=== PATIENT | female | born 1965 | race Caucasian/White ===

== ENCOUNTER 2023-02-11 16:26 | Observation (INO) | payer OTHER ==
[2023-02-11] MEDS ORDERED: DUONEB 0.5-3 MG/3 ml Neb IH ONE (17:18)
[2023-02-11] MEDS ORDERED: solu-MEDROL 125 MG, Sterile H2O 10 ml 2 ML IV ONE ×2 (17:18)
[2023-02-11] MEDS ORDERED: ROCEPHIN 2 Gm-D5w 50ML BAG** 2 G/50 ML IVPB IV STA (17:20)
[2023-02-11] MEDS ORDERED: Zithromax 500 MG/ 250 ML NaCl Premix 500 MG/250 ML IVPB IV STA (17:20)
[2023-02-11] MEDS ORDERED: Sterile H2O 10 ml IJ ONE (17:22)
[2023-02-11] MEDS ORDERED: ROCEPHIN 2 Gm-D5w 50ML BAG** 2 G/50 ML IVPB IV ONE (17:22)
[2023-02-11] MEDS ORDERED: solu-MEDROL ONE (17:22)
--- NOTE | 2023-02-11 17:22 | ERPHSYRPT ---
- History of Present Illness Time Seen by Provider: 02/11/23 17:22 Source: patient Exam Limitations: no limitations Patient Subjective Stated Complaint: Pt states "I have been coughing for the past week and [facility] because I couldn't take it anymore and they s aid I had low O2 sats and sent me here." Triage Nursing Assessment: Pt presented alert and oriented X 3, skin pwd. pt ambulates with an upright steady gait, able to speak in clear full sentences. tp has occasional productive cough. Physician History: 57-year-old female history of COPD CHF presents to our ED for a 1 week history of a cough. Cough is progressive. Patient went to [facility] care. Patient was observed to be hypoxic and sent to our ED for further evaluation and treatment. No associated chest pain. No trauma no fever. Symptoms are progressive. Symptoms are moderate in intensity. No specific worsening or improving factors. Patient voices no other complaints or concerns at this time. Portions of this note were created with voice recognition technology. There may be grammatical, spelling, punctuation or sound alike errors Timing/Duration: week(s) (1 week) Activities at Onset: activity Severity of Dyspnea-Max: moderate Severity of Dyspnea-Current: mild Possible Cause: occasional episodes Modifying Factors: Improves With: activity Associated Symptoms: denies symptoms Allergies/Adverse Reactions: No Known Drug Allergies Allergy (Verified 02/11/23 17:19) Home Medications: Allopurinol 300 mg [Zyloprim 300 mg] 300 mg PO DAILY 02/11/23 [History] Ferrous Sulfate 325 mg PO DAILY 02/11/23 [History] Furosemide 40 mg [Lasix 40 MG] 40 mg PO DAILY 02/11/23 [History] Oxybutynin Chloride [Oxybutynin Chloride ER] 10 mg PO DAILY 02/11/23 [History] Rivaroxaban [Xarelto] 20 mg PO DAILY 02/11/23 [History] Hx Tetanus, Diphtheria Vaccination/Date Given: No Hx Influenza Vaccination/Date Given: No Hx Pneumococcal Vaccination/Date Given: No Immunizations Up to Date: Yes Travel Risk - International Travel Have you traveled outside of the country in past 3 weeks: No - Coronavirus Screening Are you exhibiting any of the following symptoms?: Yes Symptoms: Cough: New Onset Close contact with a COVID-19 positive Pt in past 14-21 Days: No - Vaccine Status Have you recieved a Covid-19 vaccination: No - Review of Systems Constitutional: No Symptoms, No Fever, No Chills Eyes: No Symptoms Ears, Nose, & Throat: No Symptoms Respiratory: No Symptoms, No Cough, No Dyspnea Cardiac: No Symptoms, No Chest Pain, No Edema, No Syncope Abdominal/Gastrointestinal: No Symptoms, No Abdominal Pain, No Nausea, No Vomiting, No Diarrhea Genitourinary Symptoms: No Symptoms, No Dysuria Musculoskeletal: No Symptoms, No Back Pain, No Neck Pain Skin: No Symptoms, No Rash Neurological: No Symptoms, No Dizziness, No Focal Weakness, No Sensory Changes Psychological: No Symptoms Endocrine: No Symptoms Hematologic/Lymphatic: No Symptoms Immunological/Allergic: No Symptoms All Other Systems: Reviewed and Negative - Past Medical History Pertinent Past Medical History: Yes Neurological History: Stroke Cardiac History: Arrhythmia, Congestive Heart Failure, High Cholesterol, Hypertension Respiratory History: COPD, Pneumonia, Sleep Apnea Endocrine Medical History: No Pertinent History Musculoskeletal History: Osteoarthritis GI Medical History: GERD History: Renal Disease Female Reproductive Disorders: No Pertinent History Other Medical History: PMH: A-FIB, GOUT IN B GREAT TOES, STROKE (07/13/13), KIDNEY DISEASE. PSH: NONE - Past Surgical History Past Surgical History: No - Social History Smoking Status: Never smoker Exposure to second hand smoke: Yes Drug Use: none Patient Lives Alone: Yes - Nursing Vital Signs Nursing Vital Signs: Initial Vital Signs Temperature 97.2 F 02/11/23 17:12 Pulse Rate 85 02/11/23 17:12 Respiratory Rate 22 02/11/23 17:12 Blood Pressure 161/96 02/11/23 17:12 O2 Sat by Pulse Oximetry 86 L 02/11/23 17:12 Pain Scale Pain Intensity 0 - Physical Exam General Appearance: no apparent distress, alert Eye Exam: PERRL/EOMI, eyes nml inspection Ears, Nose, Throat Exam: hearing grossly normal, normal ENT inspection Neck Exam: normal inspection, supple Respiratory Exam: diminished breath sounds Cardiovascular/Chest Exam: normal heart sounds, regular rate/rhythm Abdominal/Gastrointestinal Exam: soft, No tenderness, No distention, No mass Extremity Exam: non-tender, normal range of motion, normal inspection, no calf tenderness, no pedal edema Neurologic Exam: alert, oriented x 3, cooperative, 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 as tested, sensation nml, No motor deficits Skin Exam: normal color, warm, No dry SpO2 Interpretation: normal SpO2: 86 O2 Delivery: Room Air - Course Nursing assessment & vital signs reviewed: Yes EKG Interpreted by Me: RATE (73), Sinus Rhythm, NORMAL AXIS, NORMAL INTERVALS - Radiology Exams Chest X-ray Interpretation: Reviewed by me (Patchy left upper lobe infiltrate left lower lobe opacity) Ordered Tests: Active Orders 24 hr Category Date Time Status Etl Bi Developer STAT Care 02/11/23 17:18 Active EKG-ER Only STAT Care 02/11/23 17:17 Active IV Insertion STAT Care 02/11/23 17:17 Active Pulse Oximetry (ED) STAT Care 02/11/23 17:17 Active CHEST 1 VIEW (PORTABLE) Stat Exams 02/11/23 19:15 Taken BLOOD CULTURE Stat Lab 02/11/23 19:25 Received CBC W DIFF Stat Lab 02/11/23 18:23 Completed CMP Stat Lab 02/11/23 18:23 Completed D-DIMER QUANTITATIVE Stat Lab 02/11/23 18:23 Completed NT PRO BNPII Stat Lab 02/11/23 18:23 Completed TROPONIN Q4H Lab 02/11/23 18:23 Completed TROPONIN Q4H Lab 02/11/23 21:30 Ordered TROPONIN Q4H Lab 02/12/23 01:30 Ordered Respiratory Therapy Assessment DAILY RT 02/11/23 17:20 Active Transfer Order Routine Transfer 02/11/23 Ordered Medication Summary Discontinued Medications Generic Name Dose Route Start Last Admin Trade Name Freq PRN Reason Stop Dose Admin Albuterol/Ipratropium 3 ml 02/11/23 17:18 02/11/23 17:19 Ipratropium/Albuterol Sulfate 3 Ml Ampul.Neb IH 02/11/23 17:19 3 ml STAT ONE Administration Methylprednisolone Sodium 0 mg 02/11/23 17:18 02/11/23 18:50 Succinate 125 mg/ Sterile IV 02/11/23 17:19 125 mg Water 2 ml STAT ONE Administration Ceftriaxone Sodium/Dextrose 2 g in 50 mls @ 100 mls/hr 02/11/23 17:20 02/11/23 18:50 Rocephin 2 Gm-D5w 50ml Bag IV 02/11/23 17:49 100 ml/hr STAT STA 100 mls/hr Administration Azithromycin 500 mg in 250 mls @ 250 mls/hr 02/11/23 17:20 02/11/23 19:24 Zithromax 500 Mg/ 250 Ml Nacl Premix IV 02/11/23 18:19 250 ml/hr STAT STA 250 mls/hr Administration Ceftriaxone Sodium/Dextrose Confirm 02/11/23 17:22 Rocephin 2 Gm-D5w 50ml Bag Administered 02/11/23 17:23 Dose 2 g in 50 mls @ ud IV .STK-MED ONE Azithromycin Confirm 02/11/23 19:18 Zithromax 500 Mg/ 250 Ml Nacl Premix Administered 02/11/23 19:19 Dose 500 mg in 250 mls @ ud IV .STK-MED ONE Methylprednisolone Sodium Succinate Confirm 02/11/23 17:22 Methylprednis Sod Succ 125 Mg/2 Ml Vial Administered 02/11/23 17:23 Dose 125 mg .ROUTE .STK-MED ONE Sterile Water Confirm 02/11/23 17:22 Water For Injection,Sterile 10 Ml Vial Administered 02/11/23 17:23 Dose 10 ml IJ .STK-MED ONE Lab/Rad Data: Laboratory Result Diagrams 02/11/23 18:23 02/11/23 18:23 Laboratory Results 02/11/23 02/11/23 02/11/23 Range/Units 18:23 18:23 18:23 WBC (4.0-10.5) x10^3/uL RBC (4.1-5.4) x10^6/uL Hgb (12.0-16.0) g/dL Hct (35-47) % MCV (78-100) fL MCH (26-32) pg MCHC (32-36) g/dL RDW (11.5-14.0) % Plt Count (150-450) x10^3/uL MPV (7.5-11.0) fL Gran % (36.0-66.0) % Immature Gran % (Auto) (0.00-0.4) % Nucleat RBC Rel Count (0.00-0.1) % Eos # (Auto) (0-0.5) x10^3/uL Immature Gran # (Auto) (0.00-0.03) x10^3u/L Absolute Lymphs (auto) (1.0-4.6) x10^3/uL Absolute Monos (auto) (0.0-1.3) x10^3/uL Absolute Nucleated RBC (0.00-0.01) x10^3u/L Lymphocytes % (24.0-44.0) % Monocytes % (0.0-12.0) % Eosinophils % (0.00-5.0) % Basophils % (0.0-0.4) % Absolute Granulocytes (1.4-6.9) x10^3/uL Basophils # (0-0.4) x10^3/uL D-Dimer 0.64 H* (0.0-0.50) mg/L Sodium 135 L (137-145) mmol/L Potassium 4.6 (3.5-5.1) mmol/L Chloride 98 (98-107) mmol/L Carbon Dioxide 30 (22-30) mmol/L Anion Gap 12.5 (5-15) MEQ/L BUN 27 H (7-17) mg/dL Creatinine 1.56 H (0.52-1.04) mg/dL Estimated GFR 38.1 ML/MIN Glucose 115 H (74-106) mg/dL Calcium 9.0 (8.4-10.2) mg/dL Total Bilirubin 1.00 (0.2-1.3) mg/dL AST 19 (14-36) U/L ALT 11 (0-35) U/L Alkaline Phosphatase 106 (38-126) U/L Troponin I < 0.012 (0.000-0.034) ng/mL NT-Pro-B Natriuret Pep 1330 (<300) pg/mL Serum Total Protein 7.4 (6.3-8.2) g/dL Albumin 3.4 L (3.5-5.0) g/dL Slides for Path Review 02/11/23 Range/Units 18:23 WBC 17.3 H (4.0-10.5) x10^3/uL RBC 3.58 L (4.1-5.4) x10^6/uL Hgb 10.0 L (12.0-16.0) g/dL Hct 35.3 (35-47) % MCV 98.6 (78-100) fL MCH 27.9 (26-32) pg MCHC 28.3 L (32-36) g/dL RDW 16.2 H (11.5-14.0) % Plt Count 397 (150-450) x10^3/uL MPV 9.8 (7.5-11.0) fL Gran % 91.1 H (36.0-66.0) % Immature Gran % (Auto) 0.7 H (0.00-0.4) % Nucleat RBC Rel Count 0.0 (0.00-0.1) % Eos # (Auto) 0.01 (0-0.5) x10^3/uL Immature Gran # (Auto) 0.12 H (0.00-0.03) x10^3u/L Absolute Lymphs (auto) 0.84 L (1.0-4.6) x10^3/uL Absolute Monos (auto) 0.53 (0.0-1.3) x10^3/uL Absolute Nucleated RBC 0.00 (0.00-0.01) x10^3u/L Lymphocytes % 4.8 L (24.0-44.0) % Monocytes % 3.1 (0.0-12.0) % Eosinophils % 0.1 (0.00-5.0) % Basophils % 0.2 (0.0-0.4) % Absolute Granulocytes 15.78 H (1.4-6.9) x10^3/uL Basophils # 0.04 (0-0.4) x10^3/uL D-Dimer (0.0-0.50) mg/L Sodium (137-145) mmol/L Potassium (3.5-5.1) mmol/L Chloride (98-107) mmol/L Carbon Dioxide (22-30) mmol/L Anion Gap (5-15) MEQ/L BUN (7-17) mg/dL Creatinine (0.52-1.04) mg/dL Estimated GFR ML/MIN Glucose (74-106) mg/dL Calcium (8.4-10.2) mg/dL Total Bilirubin (0.2-1.3) mg/dL AST (14-36) U/L ALT (0-35) U/L Alkaline Phosphatase (38-126) U/L Troponin I (0.000-0.034) ng/mL NT-Pro-B Natriuret Pep (<300) pg/mL Serum Total Protein (6.3-8.2) g/dL Albumin (3.5-5.0) g/dL Slides for Path Review YES - Progress Progress: improved Air Movement: good Progress Note: Patient on Xarelto. D-dimer positive. Will hold anticoagulation at this time. Patient to have inpatient VQ scan. 02/11/23 19:[address] Goodwin at 7:20 PM who accepts admission to observation. 02/11/23 19:21 Patient is a 57-year-old female presents to our ED for evaluation of shortness of breath. Physical exam reveals decreased breath sounds. Patient was hypoxic. D-dimer positive however patient on Xarelto. Due to compromised renal f unction patient unable to have a CTA chest. VQ scan will be done in-house. Laboratory workup otherwise negative. Patient received antibiotics Solu-Medrol, breathing treatment. Initial troponin negative. Management discussed with Dr. Goodwin who accepts admission to observation. Plan of care discussed with patient. She agrees to admission at [facility] for further evaluation and treatment. Portions of this note were created with voice recognition technology. There may be grammatical, spelling, punctuation or sound alike errors Complexity problem addressed is high, severe exacerbation of chronic condition with threat to bodily function. No critical care time Complex of data reviewed and analyzed is extensive. Test ordered test reviewed. Results analyzed and correlated clinically history and physical exam. Management discussed with hospitalist who accepts admission to observation. Risk of complication and or risk of morbidity/mortality of patient management is high. Patient requires hospitalization for further evaluation and treatment. Vital stable. Time spent to admit patient approximately 20 minutes. Plan of care established for shared decision making. No social determinants of health present impede follow-up. Portions of this note were created with voice recognition technology. There may be grammatical, spelling, punctuation or sound alike errors 02/11/23 19:28 Chest x-ray reveals a left upper lobe patchy infiltrate left lower lobe opacity 02/11/23 20:57 Per report patient tested negative for COVID RSV influenza at [facility] just prior to arrival to our ED 02/11/23 20:58 Blood Culture(s) Obtained: Yes Antibiotics given: Yes Counseled pt/family regarding: lab results, diagnosis, rad results - Departure Departure Disposition: Observation Clinical Impression: Leukocytosis, COPD exacerbation, Hypoxia, Chronic renal insufficiency Condition: Stable Critical Care Time: No Referrals: MELBA WILHELM MD [Primary Care Provider] - Follow up/PCP as directed Instructions: Chronic Obstructive Pulmonary Disease
[2023-02-11 18:35] LABS: Absolute Neutrophil Ct (ANC) 15.78 x10^3/uL (1.4-6.9); BASOPHIL % 0.2 % (0.0-0.4); Basophil (Absolute #) 0.04 x10^3/uL (0-0.4); Eosinophil % 0.1 % (0.00-5.0); Eosinophil (Absolute #) 0.01 x10^3/uL (0-0.5); Hematocrit 35.3 % (35-47); IMMATURE GRAN # 0.12 x10^3u/L (0.00-0.03); IMMATURE GRAN % 0.7 % (0.00-0.4); Lymphocyte (Absolute #) 0.84 x10^3/uL (1.0-4.6); Lymphocytes % 4.8 % (24.0-44.0); Mean Cell Volume 98.6 fL (78-100); Mean Corpuscular Hemoglobin 27.9 pg (26-32); Mean Corpuscular Hgb Concent. 28.3 g/dL (32-36); Mean Platelet Volume 9.8 fL (7.5-11.0); Monocyte (Absolute #) 0.53 x10^3/uL (0.0-1.3); Monocytes % 3.1 % (0.0-12.0); Neutrophil % 91.1 % (36.0-66.0); Platelet Count 397 x10^3/uL (150-450); Red Blood Count 3.58 x10^6/uL (4.1-5.4); Red Cell Distribution Width 16.2 % (11.5-14.0); White Blood Count 17.3 x10^3/uL (4.0-10.5)
[2023-02-11 18:59] LABS: ALBUMIN 3.4 g/dL (3.5-5.0); ANION GAP 12.5 MEQ/L (5-15); Creatinine 1 1.56 mg/dL (0.52-1.04); EST GLOMERULAR FILTRATION RATE 38.1 ML/MIN; Potassium 4.6 mmol/L (3.5-5.1); Total Protein 7.4 g/dL (6.3-8.2)
[2023-02-11] MEDS ORDERED: Zithromax 500 MG/ 250 ML NaCl Premix 500 MG/250 ML IVPB IV ONE (19:18)
[2023-02-11 19:32] LABS: Slide Review 1 YES
--- NOTE | 2023-02-11 23:40 | PCM.HP ---
History of Present Illness - Chief Complaint Chief Complaint: COPD exacerbation, hypoxia Date: 02/11/23 History of Present Illness: Ms. Rader is a 57 year old female with a past medical history significant for hypertension, hyperlipidemia, COPD and chronic kidney disease stage IIIb with a baseline GFR in the 30-40 mL/min range who presents to the hospital with a one week history of worsening shortness of breath associated with a somewhat productive cough. She had tried OTC medicines, then visited an urgent care clinic which provided her with one breathing treatment, but her symptoms did not improve. She was seen in the ER, treated with solumedrol, nebs and one dose of antibiotics. Her d-dimer was elevated but she was unable to get CTA due to an elevated creatinine of 1.56. She is currently resting in her room, awake/alert. She denies any chest pain or shortness of breath currently. No nausea, vomiting or diarrhea. No dysuria, hematuria, or urinary frequency. - Review of Systems Constitutional: No Symptoms Eyes: No Symptoms Ears, Nose, & Throat: No Symptoms Respiratory: Cough, Short Of Breath Cardiac: No Chest Pain, No Edema Abdominal/Gastrointestinal: No Abdominal Pain, No Nausea, No Vomiting Genitourinary Symptoms: No Symptoms Musculoskeletal: No Symptoms Neurological: No Symptoms Psychological: No Symptoms Endocrine: No Symptoms Hematologic/Lymphatic: No Symptoms Medications & Allergies Home Medications: Home Medication List Allopurinol 300 mg [Zyloprim 300 mg] 300 mg PO QHS 02/11/23 [History Confirmed 02/11/23] Carvedilol [Coreg ] 6.25 mg PO DAILY 02/11/23 [History Confirmed 02/11/23] Cyanocobalamin (Vitamin B-12) [Vitamin B-12] 500 mcg PO DAILY 02/11/23 [History Confirmed 02/11/23] Ferrous Sulfate 325 mg PO DAILY 02/11/23 [History Confirmed 02/11/23] Furosemide 40 mg [Lasix 40 MG] 40 mg PO DAILY 02/11/23 [History Confirmed 02/11/23] Oxybutynin Chloride [Oxybutynin Chloride ER] 10 mg PO DAILY 02/11/23 [History Confirmed 02/11/23] Rivaroxaban [Xarelto] 20 mg PO QHS 02/11/23 [History Confirmed 02/11/23] Allergies/Adverse Reactions: Allergies Allergy/AdvReac Type Severity Reaction Status Date / Time No Known Drug Allergies Allergy Verified 02/11/23 22:15 - Past Medical History Past Medical History: Yes Neurological History: Stroke ENT History: No Pertinent History Cardiac History: Arrhythmia, Congestive Heart Failure, High Cholesterol, Hypertension Respiratory History: Pneumonia, Sleep Apnea Endocrine Medical History: No Pertinent History Musculoskelatal History: Osteoarthritis GI Medical History: GERD History: Renal Disease Pyscho-Social History: No Pertinent History Reproductive Disorders: No Pertinent History Comment: afib, gout - Female History Are you now?: No - Past Surgical History Past Surgical History: No - Social History Smoking Status: Never smoker Exposure to second hand smoke: No Alcohol: None Drug Use: none - Physical Exam Vital Signs: Vital Signs - 24 hr Temp Pulse Resp BP BP Pulse Ox 02/11/23 22:58 94 L 02/11/23 22:24 98 F 77 20 124/66 94 L 02/11/23 21:00 75 25 H 129/67 94 L 02/11/23 20:59 86 L 02/11/23 20:45 76 30 H 111/74 95 02/11/23 20:30 79 22 127/72 94 L 02/11/23 20:15 78 28 H 131/74 94 L 02/11/23 20:00 81 37 H 118/72 93 L 02/11/23 19:50 83 17 94 L 02/11/23 19:46 87 19 95 02/11/23 19:30 84 20 152/70 93 L 02/11/23 19:20 84 25 H 93 L 02/11/23 19:10 84 28 H 127/72 93 L 02/11/23 18:20 94 L 02/11/23 17:31 84 24 157/108 93 L 02/11/23 17:20 100 H 24 94 L 02/11/23 17:12 97.2 F 85 24 161/96 86 L General Appearance: no apparent distress Neurologic Exam: alert, oriented x 3 Ears, Nose, Throat Exam: pharynx normal Neck Exam: supple Respiratory Exam: diminished breath sounds, wheezing Cardiovascular Exam: regular rate/rhythm Gastrointestinal/Abdomen Exam: soft Extremity Exam: No pedal edema Skin Exam: normal color Results - Labs Lab/Micro Results: Lab Results-Last 24 Hours 02/11/23 02/11/23 02/11/23 Range/Units 18:23 18:23 18:23 WBC 17.3 H (4.0-10.5) x10^3/uL RBC 3.58 L (4.1-5.4) x10^6/uL Hgb 10.0 L (12.0-16.0) g/dL Hct 35.3 (35-47) % MCV 98.6 (78-100) fL MCH 27.9 (26-32) pg MCHC 28.3 L (32-36) g/dL RDW 16.2 H (11.5-14.0) % Plt Count 397 (150-450) x10^3/uL MPV 9.8 (7.5-11.0) fL Gran % 91.1 H (36.0-66.0) % Immature Gran % (Auto) 0.7 H (0.00-0.4) % Nucleat RBC Rel Count 0.0 (0.00-0.1) % Eos # (Auto) 0.01 (0-0.5) x10^3/uL Immature Gran # (Auto) 0.12 H (0.00-0.03) x10^3u/L Absolute Lymphs (auto) 0.84 L (1.0-4.6) x10^3/uL Absolute Monos (auto) 0.53 (0.0-1.3) x10^3/uL Absolute Nucleated RBC 0.00 (0.00-0.01) x10^3u/L Lymphocytes % 4.8 L (24.0-44.0) % Monocytes % 3.1 (0.0-12.0) % Eosinophils % 0.1 (0.00-5.0) % Basophils % 0.2 (0.0-0.4) % Absolute Granulocytes 15.78 H (1.4-6.9) x10^3/uL Basophils # 0.04 (0-0.4) x10^3/uL D-Dimer 0.64 H* (0.0-0.50) mg/L Sodium 135 L (137-145) mmol/L Potassium 4.6 (3.5-5.1) mmol/L Chloride 98 (98-107) mmol/L Carbon Dioxide 30 (22-30) mmol/L Anion Gap 12.5 (5-15) MEQ/L BUN 27 H (7-17) mg/dL Creatinine 1.56 H (0.52-1.04) mg/dL Estimated GFR 38.1 ML/MIN Glucose 115 H (74-106) mg/dL Calcium 9.0 (8.4-10.2) mg/dL Total Bilirubin 1.00 (0.2-1.3) mg/dL AST 19 (14-36) U/L ALT 11 (0-35) U/L Alkaline Phosphatase 106 (38-126) U/L Troponin I (0.000-0.034) ng/mL NT-Pro-B Natriuret Pep 1330 (<300) pg/mL Serum Total Protein 7.4 (6.3-8.2) g/dL Albumin 3.4 L (3.5-5.0) g/dL Slides for Path Review YES 02/11/23 02/11/23 Range/Units 18:23 21:00 WBC (4.0-10.5) x10^3/uL RBC (4.1-5.4) x10^6/uL Hgb (12.0-16.0) g/dL Hct (35-47) % MCV (78-100) fL MCH (26-32) pg MCHC (32-36) g/dL RDW (11.5-14.0) % Plt Count (150-450) x10^3/uL MPV (7.5-11.0) fL Gran % (36.0-66.0) % Immature Gran % (Auto) (0.00-0.4) % Nucleat RBC Rel Count (0.00-0.1) % Eos # (Auto) (0-0.5) x10^3/uL Immature Gran # (Auto) (0.00-0.03) x10^3u/L Absolute Lymphs (auto) (1.0-4.6) x10^3/uL Absolute Monos (auto) (0.0-1.3) x10^3/uL Absolute Nucleated RBC (0.00-0.01) x10^3u/L Lymphocytes % (24.0-44.0) % Monocytes % (0.0-12.0) % Eosinophils % (0.00-5.0) % Basophils % (0.0-0.4) % Absolute Granulocytes (1.4-6.9) x10^3/uL Basophils # (0-0.4) x10^3/uL D-Dimer (0.0-0.50) mg/L Sodium (137-145) mmol/L Potassium (3.5-5.1) mmol/L Chloride (98-107) mmol/L Carbon Dioxide (22-30) mmol/L Anion Gap (5-15) MEQ/L BUN (7-17) mg/dL Creatinine (0.52-1.04) mg/dL Estimated GFR ML/MIN Glucose (74-106) mg/dL Calcium (8.4-10.2) mg/dL Total Bilirubin (0.2-1.3) mg/dL AST (14-36) U/L ALT (0-35) U/L Alkaline Phosphatase (38-126) U/L Troponin I < 0.012 < 0.012 (0.000-0.034) ng/mL NT-Pro-B Natriuret Pep (<300) pg/mL Serum Total Protein (6.3-8.2) g/dL Albumin (3.5-5.0) g/dL Slides for Path Review - Radiology Impressions Radiology Exams & Impressions: Radiology Procedures Category Date Time Status CHEST 1 VIEW (PORTABLE) Stat Exams 02/11/23 19:15 Taken PULMONARY PERF VENTILATION [NUCMED] Routine Exams 02/12/23 08:00 Ordered - Other Procedures and Tests Respiratory Therapy 02/11/23 17:20 Respiratory Therapy Assessment DAILY 02/11/23 23:00 RT Screen per Nursing Assess ONCE Assessment/Plan (1) COPD exacerbation Current Visit: Yes Status: Acute Assessment & Plan: COPD exacerbation likely from underlying pneumonia - does have positive D-dimer but at moderate risk for contrast nephropathy with CTA chest 1. Admit to hospital 2. Duonebs q6 3. Solumedrol 40mg IV q12 4. Empiric antibiotics with rocephin/zithromax 5. Supplemental oxygen 6. Will order V/Q scan given elevated d-dimer to rule out PE Code(s): J44.1 - CHRONIC OBSTRUCTIVE PULMONARY DISEASE W (ACUTE) EXACERBATION (2) Chronic renal insufficiency Current Visit: Yes Status: Acute Assessment & Plan: Creatinine at 1.6 with baseline ~ 1.4 likely from underlying cardiorenal syndrome 1. Encourage PO intake 2. Diuretics prn - will hold for now 3. Defer IV contrast 4. Avoid NSAIDs 5. Follow I/Os 6. Watch electrolytes, creatinine closely Code(s): N18.9 - CHRONIC KIDNEY DISEASE, UNSPECIFIED Telemedicine Encounter - Telemedicine Encounter Telemedicine Encounter: The entirety of this encounter was performed via Telemedicine"
[2023-02-12] MEDS ORDERED: XARELTO 10 MG TABLET PO SCH ×2 (00:02→10:00)
[2023-02-12] MEDS: ZYLOPRIM 300 MG PO SCH ×2 (00:05→21:06)
[2023-02-12] MEDS ORDERED: DUONEB 0.5-3 MG/3 ml Neb IH PRN (01:47)
[2023-02-12] MEDS ORDERED: DUONEB 0.5-3 MG/3 ml Neb IH SCH (03:00)
[2023-02-12 05:39] LABS: Hematocrit 33.6 % (35-47); Hemoglobin 9.3 g/dL (12.0-16.0); Mean Cell Volume 99.7 fL (78-100); Mean Corpuscular Hemoglobin 27.6 pg (26-32); Mean Corpuscular Hgb Concent. 27.7 g/dL (32-36); Platelet Count 365 x10^3/uL (150-450); Red Blood Count 3.37 x10^6/uL (4.1-5.4); White Blood Count 12.9 x10^3/uL (4.0-10.5)
[2023-02-12] MEDS: DUONEB 0.5-3 MG/3 ml Neb IH SCH ×4 (07:10→19:16)
[2023-02-12 07:29] LABS: Calcium 8.9 mg/dL (8.4-10.2); Creatinine 1 1.67 mg/dL (0.52-1.04); EST GLOMERULAR FILTRATION RATE 35.1 ML/MIN; Potassium 3.9 mmol/L (3.5-5.1)
[2023-02-12 07:30] LABS: BILIRUBIN,TOTAL 0.5 mg/dL (0.2-1.3); Total Protein 6.7 g/dL (6.3-8.2)
[2023-02-12 07:31] LABS: ANION GAP 8.9 MEQ/L (5-15)
[2023-02-12 07:37] LABS: Slide Review YES
--- NOTE | 2023-02-12 08:46 | XRAY ---
Indication: Short of breath. Comparison: None Portable chest demonstrates diffuse left lung and lesser degree right base patchy airspace disease. Rule out Covid 19 pneumonia. Heart enlarged obscuring left lung base. Bony thorax intact with osteopenia and mild degenerative changes.
[2023-02-12] MEDS ORDERED: ZYLOPRIM 300 MG PO SCH (10:00)
[2023-02-12] MEDS: Coreg PO SCH ×2 (10:18→21:05)
[2023-02-12] MEDS: solu-MEDROL 40 MG, Sterile H2O 10 ml 1 ML IV SCH ×4 (10:18→21:06)
[2023-02-12] MEDS: ROCEPHIN 1 Gm-D5w 50 ml Bag** 1 G/50 ML IVPB IV SCH (10:19)
[2023-02-12] MEDS: MUCINEX DM 600/30MG PO SCH ×3 (10:28→21:05)
[2023-02-12] MEDS: Zithromax 500 MG/ 250 ML NaCl Premix 500 MG/250 ML IVPB IV SCH (10:52)
[2023-02-12 12:12] LABS: INFLUENZA A NEGATIVE (NEGATIVE); INFLUENZA B NEGATIVE (NEGATIVE); RESPIRATORY SYNCTIAL VIRUS NEGATIVE (NEGATIVE); SARS-CoV-2 Xpert Express NEGATIVE (NEGATIVE)
--- NOTE | 2023-02-12 13:43 | PCM.NOTE ---
Date and Time: 02/12/23 0133 Subjective Assessment: Ms. Rader is a 57 year old female with a past medical history significant for hypertension, hyperlipidemia, COPD and chronic kidney disease stage IIIb with a baseline GFR in the 30-40 mL/min range who presents to the hospital with a one week history of worsening shortness of breath associated with a somewhat productive cough. She had tried OTC medicines, then visited an urgent care clinic which provided her with one breathing treatment, but her symptoms did not improve. She was seen in the ER, treated with solumedrol, nebs and one dose of antibiotics. Her d-dimer was elevated but she was unable to get CTA due to an elevated creatinine of 1.56. She was admitted and started on antibiotics, solume drol, and duonebs. VQ scan is scheduled for tomorrow. Pt has some pain of LLE and since d-dimer elevated will order venous duplex of BLLE. Covid/ Flu/ RSV negative. She admits to coughing up bloody/thick/yellow sputum prior to admission. Since admitted she has seen no blood. She is on 3 lNC and baseline is RA. She denies CP, Abd pain, N.V/D Pulm: Dr. Kowalski Nephro: Blayne PCP: Dr. Mcgill <RAHEEM BRYAN - Last Filed: 02/12/23 13:33> Date and Time: 02/12/232008 <DENISE CONNORS - Last Filed: 02/12/23 20:10> - Review of Systems Constitutional: No Fever, No Chills Eyes: No Symptoms Ears, Nose, & Throat: No Symptoms Respiratory: Cough, Orthopnea, No Short Of Breath Cardiac: No Chest Pain, No Edema, No Syncope Abdominal/Gastrointestinal: No Abdominal Pain, No Nausea, No Vomiting, No Diarrhea Genitourinary Symptoms: No Dysuria Musculoskeletal: No Back Pain, No Neck Pain Skin: No Rash Neurological: No Dizziness, No Focal Weakness, No Sensory Changes Psychological: No Symptoms Endocrine: No Symptoms Hematologic/Lymphatic: No Symptoms Immunological/Allergic: No Symptoms <RAHEEM BRYAN - Last Filed: 02/12/23 13:33> Objective Exam General Appearance: no apparent distress, alert, obese Neurologic Exam: alert, oriented x 3, cooperative, normal mood/affect, nml cere bellar function, sensation nml, No motor deficits Skin Exam: normal color, warm, dry Eye Exam: PERRL, EOMI, eyes nml inspection Ears, Nose, Throat Exam: normal ENT inspection, pharynx normal, moist mucous membranes Neck Exam: normal inspection, non-tender, supple, full range of motion Respiratory Exam: normal breath sounds, lungs clear, diminished breath sounds, No respiratory distress Cardiovascular Exam: regular rate/rhythm, normal heart sounds, edema (LLE, warm, and painful to touch) Gastrointestinal/Abdomen Exam: soft, No tenderness, No mass Extremity Exam: normal inspection, normal range of motion Back Exam: normal inspection, normal range of motion, No CVA tenderness, No vertebral tenderness Pelvic Exam: deferred Rectal Exam: deferred <RAHEEM BRYAN - Last Filed: 02/12/23 13:33> OBJECTIVE DATA Vital Signs: Vital Signs - 24 hr Temp Pulse Resp BP BP Pulse Ox 02/12/23 11:55 96.9 F 69 18 141/73 94 L 02/12/23 10:49 65 20 95 02/12/23 07:19 96.1 F 67 18 108/51 96 02/12/23 07:13 72 18 94 L 02/12/23 04:00 97.0 F 69 18 120/69 94 L 02/11/23 23:27 73 20 95 02/11/23 22:58 94 L 02/11/23 22:24 98 F 77 20 124/66 94 L 02/11/23 21:00 75 25 H 129/67 94 L 02/11/23 20:59 86 L 02/11/23 20:45 76 30 H 111/74 95 02/11/23 20:30 79 22 127/72 94 L 02/11/23 20:15 78 28 H 131/74 94 L 02/11/23 20:00 81 37 H 118/72 93 L 02/11/23 19:50 83 17 94 L 02/11/23 19:46 87 19 95 02/11/23 19:30 84 20 152/70 93 L 02/11/23 19:20 84 25 H 93 L 02/11/23 19:10 84 28 H 127/72 93 L 02/11/23 18:20 94 L 02/11/23 17:31 84 24 157/108 93 L 02/11/23 17:20 100 H 24 94 L 02/11/23 17:12 97.2 F 85 24 161/96 86 L Pain Assessment - Last Documented Pain Intensity 0 Intake and Output: Intake & Output 02/10/23 02/11/23 02/12/23 02/13/23 11:59 11:59 11:59 11:59 Intake Total 400 Output Total 900 Balance 400 -900 Weight 150.5 kg Lab Results: Lab Results-Last 24 Hours 02/11/23 02/11/23 02/11/23 Range/Units 18:23 18:23 18:23 WBC 17.3 H (4.0-10.5) x10^3/uL RBC 3.58 L (4.1-5.4) x10^6/uL Hgb 10.0 L (12.0-16.0) g/dL Hct 35.3 (35-47) % MCV 98.6 (78-100) fL MCH 27.9 (26-32) pg MCHC 28.3 L (32-36) g/dL RDW 16.2 H (11.5-14.0) % Plt Count 397 (150-450) x10^3/uL MPV 9.8 (7.5-11.0) fL Gran % 91.1 H (36.0-66.0) % Immature Gran % (Auto) 0.7 H (0.00-0.4) % Nucleat RBC Rel Count 0.0 (0.00-0.1) % Eos # (Auto) 0.01 (0-0.5) x10^3/uL Immature Gran # (Auto) 0.12 H (0.00-0.03) x10^3u/L Absolute Lymphs (auto) 0.84 L (1.0-4.6) x10^3/uL Absolute Monos (auto) 0.53 (0.0-1.3) x10^3/uL Absolute Nucleated RBC 0.00 (0.00-0.01) x10^3u/L Lymphocytes % 4.8 L (24.0-44.0) % Monocytes % 3.1 (0.0-12.0) % Eosinophils % 0.1 (0.00-5.0) % Basophils % 0.2 (0.0-0.4) % Absolute Granulocytes 15.78 H (1.4-6.9) x10^3/uL Basophils # 0.04 (0-0.4) x10^3/uL D-Dimer 0.64 H* (0.0-0.50) mg/L Sodium 135 L (137-145) mmol/L Potassium 4.6 (3.5-5.1) mmol/L Chloride 98 (98-107) mmol/L Carbon Dioxide 30 (22-30) mmol/L Anion Gap 12.5 (5-15) MEQ/L BUN 27 H (7-17) mg/dL Creatinine 1.56 H (0.52-1.04) mg/dL Estimated GFR 38.1 ML/MIN Glucose 115 H (74-106) mg/dL Calcium 9.0 (8.4-10.2) mg/dL Total Bilirubin 1.00 (0.2-1.3) mg/dL AST 19 (14-36) U/L ALT 11 (0-35) U/L Alkaline Phosphatase 106 (38-126) U/L Troponin I (0.000-0.034) ng/mL NT-Pro-B Natriuret Pep 1330 (<300) pg/mL Serum Total Protein 7.4 (6.3-8.2) g/dL Albumin 3.4 L (3.5-5.0) g/dL Influenza Type A Ag (NEGATIVE) Influenza Type B Ag (NEGATIVE) RSV (PCR) (NEGATIVE) SARS-CoV-2 (PCR) (NEGATIVE) Slides for Path Review YES 02/11/23 02/11/23 02/12/23 Range/Units 18:23 21:00 04:39 WBC (4.0-10.5) x10^3/uL RBC (4.1-5.4) x10^6/uL Hgb (12.0-16.0) g/dL Hct (35-47) % MCV (78-100) fL MCH (26-32) pg MCHC (32-36) g/dL RDW (11.5-14.0) % Plt Count (150-450) x10^3/uL MPV (7.5-11.0) fL Gran % (36.0-66.0) % Immature Gran % (Auto) (0.00-0.4) % Nucleat RBC Rel Count (0.00-0.1) % Eos # (Auto) (0-0.5) x10^3/uL Immature Gran # (Auto) (0.00-0.03) x10^3u/L Absolute Lymphs (auto) (1.0-4.6) x10^3/uL Absolute Monos (auto) (0.0-1.3) x10^3/uL Absolute Nucleated RBC (0.00-0.01) x10^3u/L Lymphocytes % (24.0-44.0) % Monocytes % (0.0-12.0) % Eosinophils % (0.00-5.0) % Basophils % (0.0-0.4) % Absolute Granulocytes (1.4-6.9) x10^3/uL Basophils # (0-0.4) x10^3/uL D-Dimer (0.0-0.50) mg/L Sodium (137-145) mmol/L Potassium (3.5-5.1) mmol/L Chloride (98-107) mmol/L Carbon Dioxide (22-30) mmol/L Anion Gap (5-15) MEQ/L BUN (7-17) mg/dL Creatinine (0.52-1.04) mg/dL Estimated GFR ML/MIN Glucose (74-106) mg/dL Calcium (8.4-10.2) mg/dL Total Bilirubin (0.2-1.3) mg/dL AST (14-36) U/L ALT (0-35) U/L Alkaline Phosphatase (38-126) U/L Troponin I < 0.012 < 0.012 < 0.012 (0.000-0.034) ng/mL NT-Pro-B Natriuret Pep (<300) pg/mL Serum Total Protein (6.3-8.2) g/dL Albumin (3.5-5.0) g/dL Influenza Type A Ag (NEGATIVE) Influenza Type B Ag (NEGATIVE) RSV (PCR) (NEGATIVE) SARS-CoV-2 (PCR) (NEGATIVE) Slides for Path Review 02/12/23 02/12/23 02/12/23 Range/Units 04:39 04:39 Unknown WBC 12.9 H (4.0-10.5) x10^3/uL RBC 3.37 L (4.1-5.4) x10^6/uL Hgb 9.3 L (12.0-16.0) g/dL Hct 33.6 L (35-47) % MCV 99.7 (78-100) fL MCH 27.6 (26-32) pg MCHC 27.7 L (32-36) g/dL RDW 16.0 H (11.5-14.0) % Plt Count 365 (150-450) x10^3/uL MPV 10.0 (7.5-11.0) fL Gran % (36.0-66.0) % Immature Gran % (Auto) (0.00-0.4) % Nucleat RBC Rel Count (0.00-0.1) % Eos # (Auto) (0-0.5) x10^3/uL Immature Gran # (Auto) (0.00-0.03) x10^3u/L Absolute Lymphs (auto) (1.0-4.6) x10^3/uL Absolute Monos (auto) (0.0-1.3) x10^3/uL Absolute Nucleated RBC (0.00-0.01) x10^3u/L Lymphocytes % (24.0-44.0) % Monocytes % (0.0-12.0) % Eosinophils % (0.00-5.0) % Basophils % (0.0-0.4) % Absolute Granulocytes (1.4-6.9) x10^3/uL Basophils # (0-0.4) x10^3/uL D-Dimer (0.0-0.50) mg/L Sodium 138 (137-145) mmol/L Potassium 3.9 (3.5-5.1) mmol/L Chloride 102 (98-107) mmol/L Carbon Dioxide 31 H (22-30) mmol/L Anion Gap 8.9 (5-15) MEQ/L BUN 25 H (7-17) mg/dL Creatinine 1.67 H (0.52-1.04) mg/dL Estimated GFR 35.1 ML/MIN Glucose 212 H (74-106) mg/dL Calcium 8.9 (8.4-10.2) mg/dL Total Bilirubin 0.50 (0.2-1.3) mg/dL AST 14 (14-36) U/L ALT 12 (0-35) U/L Alkaline Phosphatase 102 (38-126) U/L Troponin I (0.000-0.034) ng/mL NT-Pro-B Natriuret Pep (<300) pg/mL Serum Total Protein 6.7 (6.3-8.2) g/dL Albumin 3.0 L (3.5-5.0) g/dL Influenza Type A Ag NEGATIVE (NEGATIVE) Influenza Type B Ag NEGATIVE (NEGATIVE) RSV (PCR) NEGATIVE (NEGATIVE) SARS-CoV-2 (PCR) NEGATIVE (NEGATIVE) Slides for Path Review YES Radiology Exams: Radiology Procedures Category Date Time Status CHEST 1 VIEW (PORTABLE) Stat Exams 02/11/23 19:15 Completed PULMONARY PERF VENTILATION [NUCMED] Routine Exams 02/12/23 08:00 Ordered VENOUS BILATERAL EXTREMITY [US] Routine Exams 02/12/23 10:46 Ordered <RAHEEM BRYAN - Last Filed: 02/12/23 13:33> Vital Signs: Vital Signs - 24 hr Temp Pulse Resp BP BP Pulse Ox 02/12/23 19:43 97.1 F 70 19 124/58 96 02/12/23 19:16 77 18 94 L 02/12/23 16:00 97.2 F 73 18 125/74 91 L 02/12/23 15:08 70 18 94 L 02/12/23 11:55 96.9 F 69 18 141/73 94 L 02/12/23 10:49 65 20 95 02/12/23 07:19 96.1 F 67 18 108/51 96 02/12/23 07:13 72 18 94 L 02/12/23 04:00 97.0 F 69 18 120/69 94 L 02/11/23 23:27 73 20 95 02/11/23 22:58 94 L 02/11/23 22:24 98 F 77 20 124/66 94 L 02/11/23 21:00 75 25 H 129/67 94 L 02/11/23 20:59 86 L 02/11/23 20:45 76 30 H 111/74 95 12/19/23 20:30 79 22 127/72 94 L 02/11/23 20:15 78 28 H 131/74 94 L Pain Assessment - Last Documented Pain Intensity 0 Intake and Output: Intake & Output 02/10/23 02/11/23 02/12/23 02/13/23 11:59 11:59 11:59 11:59 Intake Total 400 300 Output Total 900 Balance 400 -600 Weight 150.5 kg Lab Results: Lab Results-Last 24 Hours 02/11/23 02/12/23 02/12/23 Range/Units 21:00 04:39 04:39 WBC 12.9 H (4.0-10.5) x10^3/uL RBC 3.37 L (4.1-5.4) x10^6/uL Hgb 9.3 L (12.0-16.0) g/dL Hct 33.6 L (35-47) % MCV 99.7 (78-100) fL MCH 27.6 (26-32) pg MCHC 27.7 L (32-36) g/dL RDW 16.0 H (11.5-14.0) % Plt Count 365 (150-450) x10^3/uL MPV 10.0 (7.5-11.0) fL Sodium (137-145) mmol/L Potassium (3.5-5.1) mmol/L Chloride (98-107) mmol/L Carbon Dioxide (22-30) mmol/L Anion Gap (5-15) MEQ/L BUN (7-17) mg/dL Creatinine (0.52-1.04) mg/dL Estimated GFR ML/MIN Glucose (74-106) mg/dL POC Glucometer (74 to 106) mg/dL Hemoglobin A1c (4.5-6.0) % Calcium (8.4-10.2) mg/dL Total Bilirubin (0.2-1.3) mg/dL AST (14-36) U/L ALT (0-35) U/L Alkaline Phosphatase (38-126) U/L Troponin I < 0.012 < 0.012 (0.000-0.034) ng/mL Serum Total Protein (6.3-8.2) g/dL Albumin (3.5-5.0) g/dL Influenza Type A Ag (NEGATIVE) Influenza Type B Ag (NEGATIVE) RSV (PCR) (NEGATIVE) SARS-CoV-2 (PCR) (NEGATIVE) Slides for Path Review YES 02/12/23 02/12/23 02/12/23 Range/Units 04:39 04:39 16:30 WBC (4.0-10.5) x10^3/uL RBC (4.1-5.4) x10^6/uL Hgb (12.0-16.0) g/dL Hct (35-47) % MCV (78-100) fL MCH (26-32) pg MCHC (32-36) g/dL RDW (11.5-14.0) % Plt Count (150-450) x10^3/uL MPV (7.5-11.0) fL Sodium 138 (137-145) mmol/L Potassium 3.9 (3.5-5.1) mmol/L Chloride 102 (98-107) mmol/L Carbon Dioxide 31 H (22-30) mmol/L Anion Gap 8.9 (5-15) MEQ/L BUN 25 H (7-17) mg/dL Creatinine 1.67 H (0.52-1.04) mg/dL Estimated GFR 35.1 ML/MIN Glucose 212 H (74-106) mg/dL POC Glucometer 165 H (74 to 106) mg/dL Hemoglobin A1c 5.23 (4.5-6.0) % Calcium 8.9 (8.4-10.2) mg/dL Total Bilirubin 0.50 (0.2-1.3) mg/dL AST 14 (14-36) U/L ALT 12 (0-35) U/L Alkaline Phosphatase 102 (38-126) U/L Troponin I (0.000-0.034) ng/mL Serum Total Protein 6.7 (6.3-8.2) g/dL Albumin 3.0 L (3.5-5.0) g/dL Influenza Type A Ag (NEGATIVE) Influenza Type B Ag (NEGATIVE) RSV (PCR) (NEGATIVE) SARS-CoV-2 (PCR) (NEGATIVE) Slides for Path Review 02/12/23 Range/Units Unknown WBC (4.0-10.5) x10^3/uL RBC (4.1-5.4) x10^6/uL Hgb (12.0-16.0) g/dL Hct (35-47) % MCV (78-100) fL MCH (26-32) pg MCHC (32-36) g/dL RDW (11.5-14.0) % Plt Count (150-450) x10^3/uL MPV (7.5-11.0) fL Sodium (137-145) mmol/L Potassium (3.5-5.1) mmol/L Chloride (98-107) mmol/L Carbon Dioxide (22-30) mmol/L Anion Gap (5-15) MEQ/L BUN (7-17) mg/dL Creatinine (0.52-1.04) mg/dL Estimated GFR ML/MIN Glucose (74-106) mg/dL POC Glucometer (74 to 106) mg/dL Hemoglobin A1c (4.5-6.0) % Calcium (8.4-10.2) mg/dL Total Bilirubin (0.2-1.3) mg/dL AST (14-36) U/L ALT (0-35) U/L Alkaline Phosphatase (38-126) U/L Troponin I (0.000-0.034) ng/mL Serum Total Protein (6.3-8.2) g/dL Albumin (3.5-5.0) g/dL Influenza Type A Ag NEGATIVE (NEGATIVE) Influenza Type B Ag NEGATIVE (NEGATIVE) RSV (PCR) NEGATIVE (NEGATIVE) SARS-CoV-2 (PCR) NEGATIVE (NEGATIVE) Slides for Path Review Radiology Exams: Radiology Procedures Category Date Time Status CHEST 1 VIEW (PORTABLE) Stat Exams 02/11/23 19:15 Completed PULMONARY PERF VENTILATION [NUCMED] Routine Exams 02/12/23 08:00 Ordered VENOUS BILATERAL EXTREMITY [US] Routine Exams 02/12/23 10:46 Completed <DENISE CONNORS - Last Filed: 02/12/23 20:10> Assessment/Plan (1) Pneumonia Current Visit: Yes Status: Acute Assessment & Plan: -Tele - Chest XR 02/11/23 Portable chest demonstrates diffuse left lung and lesser degree right base patchy airspace disease. Rule out Covid 19 pneumonia. Heart enlarged obscuring left lung base. Bony thorax intact with osteopenia and mild degenerative changes. - Cough with yellow thick sputum - Rocephin and zithromax - Duonebs, solumedrol - Mucinex - RSV/ Flu/COVID negative - 3LNC- baseline RA - WBC improved 12.9 Code(s): J18.9 - PNEUMONIA, UNSPECIFIED ORGANISM (2) COPD exacerbation Current Visit: Yes Status: Acute Assessment & Plan: - Follows Dr. Kowalski - See Pneumonia plan above. Code(s): J44.1 - CHRONIC OBSTRUCTIVE PULMONARY DISEASE W (ACUTE) EXACERBATION (3) Elevated d-dimer Current Visit: Yes Status: Acute Assessment & Plan: - D-dimer 0.64 - Unable to do CT with Iv contrast d/t LLUVIA - VQ scan scheduled for tomorrow - US BLLE today - + LLE edema and warmth - Pt reports chronic edema of LLE Code(s): R79.89 - OTHER SPECIFIED ABNORMAL FINDINGS OF BLOOD CHEMISTRY (4) Acute on chronic renal failure Current Visit: Yes Status: Acute Assessment & Plan: - Follows with Dr. 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 - Recommend OP f/u. Code(s): I51.7 - CARDIOMEGALY (8) HTN (hypertension) Current Visit: Yes Status: Acute Assessment & Plan: - stable - cont home meds VTE: Xarelto D/C plan: 2-3 days Next of Kin: Nino Rader (sibling) [phone] Code(s): I10 - ESSENTIAL (PRIMARY) HYPERTENSION <RAHEEM BRYAN - Last Filed: 02/12/23 13:33> NAGIE Encounter - ANGIE Encounter Attestation ANGIE Encounter Attestation: "[email or web address] Toribio andhavediscussed pertinent aspects of their care with Raheem Bryan and agree with the history, physical exam (any modifications based on my personal exam will be noted below), assessment, and plan as outlined in original note. Please see immediately below for my summary of findings and additional assessment and plan along with any meaningful corrections/explanations to the Subjective/Objective portions of the ANGIE note will be noted." My portion of the encounter took place via telemedicine. -Patient feeling better today but continues to require oxygen. Continue antibiotics and steroids for COPD exac and CAP. <DENISE CONNORS - Last Filed: 02/12/23 20:10>
[2023-02-12] MEDS ORDERED: HUMALOG SQ PRN (13:59)
--- NOTE | 2023-02-12 16:36 | XRAY ---
Indication: Elevated d-dimer. Left lower extremity pain and edema. Two-dimensional sonogram and color Doppler imaging of the major venous vessels of the left and right leg performed. Comparison: None No thrombus seen in the examined deep venous vessels of the left and right leg including greater saphenous vein. Veins demonstrate normal compressibility. Venous waveforms are normal with and without augmentation. Impression: Left and right legs negative for DVT.
[2023-02-13 05:13] LABS: Hemoglobin 9.2 g/dL (12.0-16.0); Mean Cell Volume 99.7 fL (78-100); Mean Corpuscular Hemoglobin 27.8 pg (26-32); Mean Corpuscular Hgb Concent. 27.9 g/dL (32-36); Mean Platelet Volume 9.6 fL (7.5-11.0); Platelet Count 319 x10^3/uL (150-450); Red Blood Count 3.31 x10^6/uL (4.1-5.4); Red Cell Distribution Width 15.6 % (11.5-14.0); White Blood Count 11.1 x10^3/uL (4.0-10.5)
[2023-02-13 05:47] LABS: ANION GAP 9.8 MEQ/L (5-15); BILIRUBIN,TOTAL 0.4 mg/dL (0.2-1.3); Creatinine 1 1.45 mg/dL (0.52-1.04); EST GLOMERULAR FILTRATION RATE 41.6 ML/MIN; Potassium 4.5 mmol/L (3.5-5.1); Total Protein 6.4 g/dL (6.3-8.2)
[2023-02-13] MEDS: DUONEB 0.5-3 MG/3 ml Neb IH SCH ×4 (07:01→18:48)
[2023-02-13 07:41] LABS: Slide Review YES
[2023-02-13] MEDS ORDERED: XARELTO 10 MG TABLET PO SCH ×2 (08:00→22:00)
[2023-02-13] MEDS ORDERED: MELATONIN PO PRN (09:06)
[2023-02-13] MEDS: FEOSOL 325 MG PO SCH (09:35)
[2023-02-13] MEDS: ROCEPHIN 1 Gm-D5w 50 ml Bag** 1 G/50 ML IVPB IV SCH (09:35)
[2023-02-13] MEDS: MUCINEX DM 600/30MG PO SCH ×2 (09:35→22:21)
[2023-02-13] MEDS: solu-MEDROL 40 MG, Sterile H2O 10 ml 1 ML IV SCH ×4 (09:35→22:24)
[2023-02-13] MEDS: Coreg PO SCH ×2 (09:35→22:21)
--- NOTE | 2023-02-13 09:47 | PCM.NOTE ---
Date and Time: 02/13/23 0938 Subjective Assessment: 02/12/23 Ms. Rader is a 57 year old female with a past medical history significant for hypertension, hyperlipidemia, COPD and chronic kidney disease stage IIIb with a baseline GFR in the 30-40 mL/min range who presents to the hospital with a one week history of worsening shortness of breath associated with a somewhat productive cough. She had tried OTC medicines, then visited an urgent care clinic which provided her with one breathing treatment, but her symptoms did not improve. She was seen in the ER, treated with solumedrol, nebs and one dose of antibiotics. Her d-dimer was elevated but she was unable to get CTA due to an elevated creatinine of 1.56. She was admitted and started on antibiotics, solumedrol, and duonebs. VQ scan is scheduled for tomorrow. Pt has some pain of LLE and since d-dimer elevated will order venous duplex of BLLE. Covid/ Flu/ RSV negative. She admits to coughing up bloody/thick/yellow sputum prior to admission. Since admitted she has seen no blood. She is on 3 lNC and baseline is RA. She denies CP, Abd pain, N.V/D Pulm: Dr. Kowalski Nephro: [facility] PCP: Dr. Mcgill 02/13/23 Pt sitting up in chair. She is feeling much better today. She reports some insomnia last night and melatonin added. Pt walked to the bathroom today without oxygen and sat dropped to 85%. Baseline at home is room air, she is currently on 2LNC. She reports she will not go home with oxygen if she needs it. She reports a hx of HEATHER and has not been wearing her Cpap for over 3 months as it needs recalibrated. It has been causing her nose bleeds and she could not tolerate. She has plans to take this in to be fixed. In the mean time CPAP IP ordered. VD of BLLE negative for DVT. Pt is scheduled to have a VQ scan today. Lasix continued to be held d/t LLUVIA and she has no pitting edema. LLUVIA improving. She s having some hyperglycemia r/t steroids. S/S added and accuchecks ac/hs. A1C is 5.23. Continue antibiotics, steriods and duonebs. She denies CP, abd pain, N/V/D. <KRYSTIN-STUBBS,RAHEEM A. - Last Filed: 02/13/23 09:38> Date and Time: 02/13/232026 <DENISE CONNORS - Last Filed: 02/13/23 20:28> - Review of Systems Constitutional: No Fever, No Chills Eyes: No Symptoms Ears, Nose, & Throat: No Symptoms Respiratory: Short Of Breath, No Cough Cardiac: No Chest Pain, No Edema, No Syncope Abdominal/Gastrointestinal: No Abdominal Pain, No Nausea, No Vomiting, No Diarrhea Genitourinary Symptoms: No Dysuria Musculoskeletal: No Back Pain, No Neck Pain Skin: No Rash Neurological: No Dizziness, No Focal Weakness, No Sensory Changes Psychological: No Symptoms Endocrine: No Symptoms Hematologic/Lymphatic: No Symptoms Immunological/Allergic: No Symptoms <RAHEEM BRYAN - Last Filed: 02/13/23 09:38> Objective Exam General Appearance: no apparent distress, alert Neurologic Exam: alert, oriented x 3, cooperative, normal mood/affect, nml cerebellar function, sensation nml, No motor deficits Skin Exam: normal color, warm, dry Eye Exam: PERRL, EOMI, eyes nml inspection Ears, Nose, Throat Exam: normal ENT inspection, pharynx normal, moist mucous membranes Neck Exam: normal inspection, non-tender, supple, full range of motion Respiratory Exam: wheezing, No respiratory distress Cardiovascular Exam: regular rate/rhythm, normal heart sounds Gastrointestinal/Abdomen Exam: soft, No tenderness, No mass Extremity Exam: normal inspection, normal range of motion Back Exam: normal inspection, normal range of motion, No CVA tenderness, No vertebral tenderness Pelvic Exam: deferred Rectal Exam: deferred <RAHEEM BRYAN - Last Filed: 02/13/23 09:38> OBJECTIVE DATA Vital Signs: Vital Signs - 24 hr Temp Pulse Resp BP Pulse Ox 02/13/23 07:01 95 02/13/23 06:54 97.7 F 65 18 125/60 96 02/13/23 04:00 97.5 F 70 22 157/85 97 02/12/23 23:05 97.2 F 70 24 143/72 95 02/12/23 19:43 97.1 F 70 19 124/58 96 02/12/23 19:16 77 18 94 L 02/12/23 16:00 97.2 F 73 18 125/74 91 L 02/12/23 15:08 70 18 94 L 02/12/23 11:55 96.9 F 69 18 141/73 94 L 02/12/23 10:49 65 20 95 Pain Assessment - Last Documented Pain Intensity 0 Intake and Output: Intake & Output 02/10/23 02/11/23 02/12/23 02/13/23 11:59 11:59 11:59 11:59 Intake Total 400 1350 Output Total 1300 Balance 400 50 Weight 150.5 kg Lab Results: Lab Results-Last 24 Hours 02/12/23 02/12/23 02/12/23 Range/Units 04:39 16:30 20:58 WBC (4.0-10.5) x10^3/uL RBC (4.1-5.4) x10^6/uL Hgb (12.0-16.0) g/dL Hct (35-47) % MCV (78-100) fL MCH (26-32) pg MCHC (32-36) g/dL RDW (11.5-14.0) % Plt Count (150-450) x10^3/uL MPV (7.5-11.0) fL Sodium (137-145) mmol/L Potassium (3.5-5.1) mmol/L Chloride (98-107) mmol/L Carbon Dioxide (22-30) mmol/L Anion Gap (5-15) MEQ/L BUN (7-17) mg/dL Creatinine (0.52-1.04) mg/dL Estimated GFR ML/MIN Glucose (74-106) mg/dL POC Glucometer 165 H 191 H (74 to 106) mg/dL Hemoglobin A1c 5.23 (4.5-6.0) % Calcium (8.4-10.2) mg/dL Total Bilirubin (0.2-1.3) mg/dL AST (14-36) U/L ALT (0-35) U/L Alkaline Phosphatase (38-126) U/L Serum Total Protein (6.3-8.2) g/dL Albumin (3.5-5.0) g/dL Influenza Type A Ag (NEGATIVE) Influenza Type B Ag (NEGATIVE) RSV (PCR) (NEGATIVE) SARS-CoV-2 (PCR) (NEGATIVE) Slides for Path Review 02/12/23 02/13/23 02/13/23 Range/Units Unknown 05:11 05:11 WBC 11.1 H (4.0-10.5) x10^3/uL RBC 3.31 L (4.1-5.4) x10^6/uL Hgb 9.2 L (12.0-16.0) g/dL Hct 33.0 L (35-47) % MCV 99.7 (78-100) fL MCH 27.8 (26-32) pg MCHC 27.9 L (32-36) g/dL RDW 15.6 H (11.5-14.0) % Plt Count 319 (150-450) x10^3/uL MPV 9.6 (7.5-11.0) fL Sodium 135 L (137-145) mmol/L Potassium 4.5 (3.5-5.1) mmol/L Chloride 100 (98-107) mmol/L Carbon Dioxide 29 (22-30) mmol/L Anion Gap 9.8 (5-15) MEQ/L BUN 39 H (7-17) mg/dL Creatinine 1.45 H (0.52-1.04) mg/dL Estimated GFR 41.6 ML/MIN Glucose 179 H (74-106) mg/dL POC Glucometer (74 to 106) mg/dL Hemoglobin A1c (4.5-6.0) % Calcium 9.0 (8.4-10.2) mg/dL Total Bilirubin 0.40 (0.2-1.3) mg/dL AST 12 L (14-36) U/L ALT 12 (0-35) U/L Alkaline Phosphatase 91 (38-126) U/L Serum Total Protein 6.4 (6.3-8.2) g/dL Albumin 3.0 L (3.5-5.0) g/dL Influenza Type A Ag NEGATIVE (NEGATIVE) Influenza Type B Ag NEGATIVE (NEGATIVE) RSV (PCR) NEGATIVE (NEGATIVE) SARS-CoV-2 (PCR) NEGATIVE (NEGATIVE) Slides for Path Review YES 02/13/23 Range/Units 06:28 WBC (4.0-10.5) x10^3/uL RBC (4.1-5.4) x10^6/uL Hgb (12.0-16.0) g/dL Hct (35-47) % MCV (78-100) fL MCH (26-32) pg MCHC (32-36) g/dL RDW (11.5-14.0) % Plt Count (150-450) x10^3/uL MPV (7.5-11.0) fL Sodium (137-145) mmol/L Potassium (3.5-5.1) mmol/L Chloride (98-107) mmol/L Carbon Dioxide (22-30) mmol/L Anion Gap (5-15) MEQ/L BUN (7-17) mg/dL Creatinine (0.52-1.04) mg/dL Estimated GFR ML/MIN Glucose (74-106) mg/dL POC Glucometer 148 H (74 to 106) mg/dL Hemoglobin A1c (4.5-6.0) % Calcium (8.4-10.2) mg/dL Total Bilirubin (0.2-1.3) mg/dL AST (14-36) U/L ALT (0-35) U/L Alkaline Phosphatase (38-126) U/L Serum Total Protein (6.3-8.2) g/dL Albumin (3.5-5.0) g/dL Influenza Type A Ag (NEGATIVE) Influenza Type B Ag (NEGATIVE) RSV (PCR) (NEGATIVE) SARS-CoV-2 (PCR) (NEGATIVE) Slides for Path Review Radiology Exams: Radiology Procedures Category Date Time Status CHEST 1 VIEW (PORTABLE) Stat Exams 02/11/23 19:15 Completed CHEST 2 VIEWS (PA AND LAT) Routine Exams 02/13/23 08:22 Ordered PULMONARY PERF VENTILATION [NUCMED] Routine Exams 02/13/23 08:00 Ordered VENOUS BILATERAL EXTREMITY [US] Routine Exams 02/12/23 10:46 Completed Multi-Disciplinary Progress Notes: Multi-Disciplinary Progress Notes 02/13/23 09:28 Case Management Note by Nellie Tabares S/[place] PATIENT- SHE CONTINUES TO DENY ANY NEW NEEDS AT TIME OF DC. SHE PLANS TO RETURN HOME AND CONTINUE OTPT PT WHEN FEELING BETTER Initialized on 02/13/23 09:28 - END OF NOTE <RAHEEM BRYAN - Last Filed: 02/13/23 09:38> Vital Signs: Vital Signs - 24 hr Temp Pulse Resp BP Pulse Ox 02/13/23 20:00 97.6 F 65 17 130/60 97 02/13/23 18:49 71 16 98 02/13/23 15:57 97.7 F 65 18 137/70 97 02/13/23 15:24 64 97 02/13/23 12:00 97.7 F 61 16 130/75 96 02/13/23 11:54 61 16 96 02/13/23 07:01 95 02/13/23 06:54 97.7 F 65 18 125/60 96 02/13/23 04:00 97.5 F 70 22 157/85 97 02/12/23 23:05 97.2 F 70 24 143/72 95 Pain Assessment - Last Documented Pain Intensity 0 Intake and Output: Intake & Output 02/11/23 02/12/23 02/13/23 02/14/23 11:59 11:59 11:59 11:59 Intake Total 400 1350 660 Output Total 1300 600 Balance 400 50 60 Weight 150.5 kg Lab Results: Lab Results-Last 24 Hours 02/12/23 02/13/23 02/13/23 Range/Units 20:58 05:11 05:11 WBC 11.1 H (4.0-10.5) x10^3/uL RBC 3.31 L (4.1-5.4) x10^6/uL Hgb 9.2 L (12.0-16.0) g/dL Hct 33.0 L (35-47) % MCV 99.7 (78-100) fL MCH 27.8 (26-32) pg MCHC 27.9 L (32-36) g/dL RDW 15.6 H (11.5-14.0) % Plt Count 319 (150-450) x10^3/uL MPV 9.6 (7.5-11.0) fL Sodium 135 L (137-145) mmol/L Potassium 4.5 (3.5-5.1) mmol/L Chloride 100 (98-107) mmol/L Carbon Dioxide 29 (22-30) mmol/L Anion Gap 9.8 (5-15) MEQ/L BUN 39 H (7-17) mg/dL Creatinine 1.45 H (0.52-1.04) mg/dL Estimated GFR 41.6 ML/MIN Glucose 179 H (74-106) mg/dL POC Glucometer 191 H (74 to 106) mg/dL Calcium 9.0 (8.4-10.2) mg/dL Total Bilirubin 0.40 (0.2-1.3) mg/dL AST 12 L (14-36) U/L ALT 12 (0-35) U/L Alkaline Phosphatase 91 (38-126) U/L Serum Total Protein 6.4 (6.3-8.2) g/dL Albumin 3.0 L (3.5-5.0) g/dL Slides for Path Review YES 02/13/23 02/13/23 Range/Units 06:28 15:43 WBC (4.0-10.5) x10^3/uL RBC (4.1-5.4) x10^6/uL Hgb (12.0-16.0) g/dL Hct (35-47) % MCV (78-100) fL MCH (26-32) pg MCHC (32-36) g/dL RDW (11.5-14.0) % Plt Count (150-450) x10^3/uL MPV (7.5-11.0) fL Sodium (137-145) mmol/L Potassium (3.5-5.1) mmol/L Chloride (98-107) mmol/L Carbon Dioxide (22-30) mmol/L Anion Gap (5-15) MEQ/L BUN (7-17) mg/dL Creatinine (0.52-1.04) mg/dL Estimated GFR ML/MIN Glucose (74-106) mg/dL POC Glucometer 148 H 192 H (74 to 106) mg/dL Calcium (8.4-10.2) mg/dL Total Bilirubin (0.2-1.3) mg/dL AST (14-36) U/L ALT (0-35) U/L Alkaline Phosphatase (38-126) U/L Serum Total Protein (6.3-8.2) g/dL Albumin (3.5-5.0) g/dL Slides for Path Review Radiology Exams: Radiology Procedures Category Date Time Status CHEST 2 VIEWS (PA AND LAT) Routine Exams 02/13/23 08:22 Completed PULMONARY PERF VENTILATION [NUCMED] Routine Exams 02/13/23 08:00 Completed VENOUS BILATERAL EXTREMITY [US] Routine Exams 02/12/23 10:46 Completed Multi-Disciplinary Progress Notes: Multi-Disciplinary Progress Notes 02/13/23 09:28 Case Management Note by Nellie Tabares S/[place] PATIENT- SHE CONTINUES TO DENY ANY NEW NEEDS AT TIME OF DC. SHE PLANS TO RETURN HOME AND CONTINUE OTPT PT WHEN FEELING BETTER Initialized on 02/13/23 09:28 - END OF NOTE <DENISE CONNORS - Last Filed: 02/13/23 20:28> Assessment/Plan (1) Pneumonia Current Visit: Yes Status: Acute Assessment & Plan: -Tele - Chest XR 02/11/23 Portable chest demonstrates diffuse left lung and lesser degree right base patchy airspace disease. Rule out Covid 19 pneumonia. Heart enlarged obscuring left lung base. Bony thorax intact with osteopenia and mild degenerative changes. - Cough with yellow thick sputum - Rocephin and zithromax - Duonebs, solumedrol - Mucinex - RSV/ Flu/COVID negative - 3LNC- baseline RA - WBC improved 12.9 02/13 - WBC improved 11.1 - Continues to require 2LNC - refuses home o2 if needed - Continues to cough up small amount of yellow sputum, no hemoptysis Code(s): J18.9 - PNEUMONIA, UNSPECIFIED ORGANISM (2) COPD exacerbation Current Visit: Yes Status: Acute Assessment & Plan: - Follows Dr. Kowalski - See Pneumonia plan above. Code(s): J44.1 - CHRONIC OBSTRUCTIVE PULMONARY DISEASE W (ACUTE) EXACERBATION (3) Elevated d-dimer Current Visit: Yes Status: Acute Assessment & Plan: - D-dimer 0.64 - Unable to do CT with IV contrast d/t LLUVIA - VQ scan scheduled for tomorrow - US BLLE today - + LLE edema and warmth - Pt reports chronic edema of LLE 02/13/23 - VQ scan today - US BLLE negative for DVT Code(s): R79.89 - OTHER SPECIFIED ABNORMAL FINDINGS OF BLOOD CHEMISTRY (4) Acute on chronic renal failure Current Visit: Yes Status: Acute Assessment & Plan: - Follows with Dr. 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 - Recommend OP f/u with cardiology for further evaluation - Hx HEATHER with noncompliance Code(s): I51.7 - CARDIOMEGALY (8) HTN (hypertension) Current Visit: Yes Status: Chronic Assessment & Plan: - stable - cont home meds Code(s): I10 - ESSENTIAL (PRIMARY) HYPERTENSION (9) Insomnia Current Visit: Yes Status: Acute Assessment & Plan: - melatonin added @ HS Code(s): G47.00 - INSOMNIA, UNSPECIFIED (10) HEATHER (obstructive sleep apnea) Current Visit: Yes Status: Chronic Assessment & Plan: - not wearing cpap at home - Cpap ordered IP. Code(s): G47.33 - OBSTRUCTIVE SLEEP APNEA (ADULT) (PEDIATRIC) (11) Acute hyperglycemia Current Visit: Yes Status: Acute Assessment & Plan: - R/T steriods - accuchecks AC/HS, low dose s/s. - A1C 5.23 VTE: Xarelto D/C plan: 1-2 days Next of Kin: Nino Rader (sibling) [phone] Code(s): R73.9 - HYPERGLYCEMIA, UNSPECIFIED <RAHEEM BRYAN - Last Filed: 02/13/23 09:38> ANGIE Encounter - ANGIE Encounter Attestation ANGIE Encounter Attestation: "IhsandovalSHRUTI Montgomery andfredyiscussed pertinent aspects of their care with Raheem Hope-Hesterand agree with the history, physical exam (any modifications based on my personal exam will be noted below), assessment, and plan as outlined in original note. Please see immediately below for my summary of findings and additional assessment and plan along with any meaningful corrections/explanations to the Subjective/Objective portions of the ANGIE note will be noted." My portion of the encounter took place via telemedicine. -Patient feels better today but still requiring oxygen. V/Q scan was low probability. She will be trying CPAP tonight (supposed to be using at home but has not used since June). <DEINSE CONNORS - Last Filed: 02/13/23 20:28>
--- NOTE | 2023-02-13 11:29 | XRAY ---
Indication: Short of breath. Nuclear medicine ventilation perfusion protocol. Comparison: November 12, 2022. Portable chest again demonstrates diffuse left lung consolidating/nonconsolidating airspace disease with new effusion. Right base airspace opacity has minimally improved. Heart remains enlarged.
[2023-02-13] MEDS: Zithromax 500 MG/ 250 ML NaCl Premix 500 MG/250 ML IVPB IV SCH (11:41)
--- NOTE | 2023-02-13 11:49 | XRAY ---
Indication: Short of breath. Elevated d-dimer. Pneumonia. Comparison: None Patient received 5.7 mCi technetium 99 MAA for the perfusion portion of the exam. Patient inhaled 36.3 mCi aerosolized technetium 99 DTPA for the ventilation portion of the exam. Multiple planar images obtained. Ventilation images demonstrates cardiomegaly with subsequent attenuation radiopharmaceutical activity in left mid to lower lung. Right lung demonstrates normal homogeneous radiopharmaceutical activity. No focal segmental/subsegmental perfusion defect. Perfusion images demonstrates matched cardiomegaly attenuation left mid to lower lung. Right lung demonstrates normal homogeneous radiopharmaceutical activity. Incidental small amount of ingested radiopharmaceutical activity in the GI system. Impression: Cardiomegaly with matched ventilation/perfusion attenuation left mid to lower lung. Right lung negative for mismatch ventilation/perfusion defect. PIOPED criteria for pulmonary embolus is low probability.
[2023-02-13] MEDS: ZYLOPRIM 300 MG PO SCH (22:21)
[2023-02-14 04:49] LABS: Hematocrit 31.8 % (35-47); Hemoglobin 8.9 g/dL (12.0-16.0); Mean Cell Volume 98.8 fL (78-100); Mean Corpuscular Hemoglobin 27.6 pg (26-32); Mean Platelet Volume 9.5 fL (7.5-11.0); Platelet Count 308 x10^3/uL (150-450); Red Blood Count 3.22 x10^6/uL (4.1-5.4); Red Cell Distribution Width 15.3 % (11.5-14.0); White Blood Count 9.6 x10^3/uL (4.0-10.5)
[2023-02-14 05:06] LABS: ANION GAP 12.2 MEQ/L (5-15); BILIRUBIN,TOTAL 0.3 mg/dL (0.2-1.3); Calcium 9.3 mg/dL (8.4-10.2); Creatinine 1 1.53 mg/dL (0.52-1.04); Potassium 4.6 mmol/L (3.5-5.1)
[2023-02-14 05:26] LABS: Slide Review YES
[2023-02-14] MEDS: DUONEB 0.5-3 MG/3 ml Neb IH SCH ×2 (06:34→10:44)
[2023-02-14 10:48] VITALS: RESP 18
--- NOTE | 2023-02-14 10:49 | PCM.DS ---
Discharge Summary Date of Admission: 02/11/23 21:57 Date of Discharge: 04/17/22 Admitting Physician: TRI BALL MD Primary Care Provider: MELBA MCGILL <RAHEEM BRYAN - Last Filed: 02/14/23 10:41> Date of Admission: 02/11/23 21:57 Date of Discharge: 02/14/23 Admitting Physician: TRI BALL MD Primary Care Provider: MELBA MCGILL <DENISE CONNORS - Last Filed: 02/15/23 09:50> Allergies <RAHEEM BRYAN - Last Filed: 02/14/23 10:41> <DENISE CONNORS - Last Filed: 02/15/23 09:50> Allergies No Known Drug Allergies Allergy (Verified 02/11/23 22:15) Hospital Summary - Hospital Course Hospital Course: 02/12/23 Ms. Rader is a 57 year old female with a past medical history significant for hypertension, hyperlipidemia, COPD and chronic kidney disease stage IIIb with a baseline GFR in the 30-40 mL/min range who presents to the hospital with a one week history of worsening shortness of breath associated with a somewhat productive cough. She had tried OTC medicines, then visited an urgent care clinic which provided her with one breathing treatment, but her symptoms did not improve. She was seen in the ER, treated with solumedrol, nebs and one dose of antibiotics. Her d-dimer was elevated but she was unable to get CTA due to an elevated creatinine of 1.56. She was admitted and started on antibiotics, solumedrol, and duonebs. VQ scan is scheduled for tomorrow. Pt has some pain of LLE and since d-dimer elevated will order venous duplex of BLLE. Covid/ Flu/ RSV negative. She admits to coughing up bloody/thick/yellow sputum prior to admission. Since admitted she has seen no blood. She is on 3 lNC and baseline is RA. She denies CP, Abd pain, N.V/D Pulm: Dr. Kowalski Nephro: Blayne PCP: Dr. Mcgill 02/13/23 Pt sitting up in chair. She is feeling much better today. She reports some insomnia last night and melatonin added. Pt walked to the bathroom today without oxygen and sat dropped to 85%. Baseline at home is room air, she is currently on 2LNC. She reports she will not go home with oxygen if she needs it. She reports a hx of HEATHER and has not been wearing her Cpap for over 3 months as it needs recalibrated. It has been causing her nose bleeds and she could not tolerate. She has plans to take this in to be fixed. In the mean time CPAP IP ordered. VD of BLLE negative for DVT. Pt is scheduled to have a VQ scan today. Lasix continued to be held d/t LLUVIA and she has no pitting edema. LLUVIA improving. She having some hyperglycemia r/t steroids. S/S added and accuchecks ac/hs. A1C is 5.23. Continue antibiotics, steriods and duonebs. She denies CP, abd pain, N/V/D. 02/14/23 Pt is resting in bed. She is feeling much better and would like to go home today. She is not requiring oxygen, oxygen is 92%. VQ was negative for PE. Will d/c with antibiotics. She is requesting inhalers as her have . She reports she has a f/u appointment with pulmonology and cardiology scheduled. 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 She denies CP, abd pain, N/V/D. - Vitals & Intake/Output Vital Signs: Vital Signs Temperature 96.3 F 02/14/23 06:51 Pulse Rate 63 02/14/23 06:51 Respiratory Rate 20 02/14/23 06:51 Blood Pressure 187/86 02/14/23 06:51 O2 Sat by Pulse Oximetry 93 L 02/14/23 06:51 Intake & Output: Intake & Output 02/11/23 02/12/23 02/13/23 02/14/23 11:59 11:59 11:59 11:59 Intake Total 400 1350 1020 Output Total 1300 900 Balance 400 50 120 Weight 150.5 kg - Lab Result Diagrams: 02/14/23 04:19 02/14/23 04:19 Lab Results-Last 24 Hrs: Lab Results-Last 24 Hours 02/13/23 02/13/23 02/14/23 Range/Units 15:43 20:27 04:19 WBC 9.6 (4.0-10.5) x10^3/uL RBC 3.22 L (4.1-5.4) x10^6/uL Hgb 8.9 L (12.0-16.0) g/dL Hct 31.8 L (35-47) % MCV 98.8 (78-100) fL MCH 27.6 (26-32) pg MCHC 28.0 L (32-36) g/dL RDW 15.3 H (11.5-14.0) % Plt Count 308 (150-450) x10^3/uL MPV 9.5 (7.5-11.0) fL Sodium (137-145) mmol/L Potassium (3.5-5.1) mmol/L Chloride (98-107) mmol/L Carbon Dioxide (22-30) mmol/L Anion Gap (5-15) MEQ/L BUN (7-17) mg/dL Creatinine (0.52-1.04) mg/dL Estimated GFR ML/MIN Glucose (74-106) mg/dL POC Glucometer 192 H 161 H (74 to 106) mg/dL Calcium (8.4-10.2) mg/dL Total Bilirubin (0.2-1.3) mg/dL AST (14-36) U/L ALT (0-35) U/L Alkaline Phosphatase (38-126) U/L Serum Total Protein (6.3-8.2) g/dL Albumin (3.5-5.0) g/dL Slides for Path Review YES 02/14/23 02/14/23 Range/Units 04:19 06:39 WBC (4.0-10.5) x10^3/uL RBC (4.1-5.4) x10^6/uL Hgb (12.0-16.0) g/dL Hct (35-47) % MCV (78-100) fL MCH (26-32) pg MCHC (32-36) g/dL RDW (11.5-14.0) % Plt Count (150-450) x10^3/uL MPV (7.5-11.0) fL Sodium 135 L (137-145) mmol/L Potassium 4.6 (3.5-5.1) mmol/L Chloride 101 (98-107) mmol/L Carbon Dioxide 26 (22-30) mmol/L Anion Gap 12.2 (5-15) MEQ/L BUN 45 H (7-17) mg/dL Creatinine 1.53 H (0.52-1.04) mg/dL Estimated GFR 39.0 ML/MIN Glucose 161 H (74-106) mg/dL POC Glucometer 154 H (74 to 106) mg/dL Calcium 9.3 (8.4-10.2) mg/dL Total Bilirubin 0.30 (0.2-1.3) mg/dL AST 14 (14-36) U/L ALT 13 (0-35) U/L Alkaline Phosphatase 83 (38-126) U/L Serum Total Protein 6.0 L (6.3-8.2) g/dL Albumin 1.8 L (3.5-5.0) g/dL Slides for Path Review Micro Results-Entire Visit: Microbiology 02/11/23 19:25 Blood Culture - Preliminary Blood 02/11/23 18:23 Blood Culture - Preliminary Blood Accuchecks Date 02/14/23 Date 02/13/23 Date 02/13/23 Date 02/13/23 Time 06:51 Time 20:30 Time 15:59 Time 13:12 - Radiology Exams Ordered Rad Exams-Entire Visit: Radiology Procedures Category Date Time Status CHEST 2 VIEWS (PA AND LAT) Routine Exams 02/13/23 08:22 Completed PULMONARY PERF VENTILATION [NUCMED] Routine Exams 02/13/23 08:00 Completed VENOUS BILATERAL EXTREMITY [US] Routine Exams 02/12/23 10:46 Completed - Procedures and Test Procedures and Tests throughout Hospitalization: Therapy Orders & Screens 02/11/23 17:20 Respiratory Therapy Assessment DAILY Comment: 02/11/23 23:00 RT Screen per Nursing Assess ONCE Comment: Protocol Order Physician Instructions: Greater than 3 points order RT Admission Screen Reason For Exam: Triggered on Admission Diagnosis: COPD exacerbation, hypoxia Diagnosis: COPD exacerbation, hypoxia Pneumonia: Yes Home O2: No Asthma: No CHF: Yes Home CPAP/BIPAP: Yes Home Nebs/MDI: No Total Points: 11 02/11/23 23:27 Oxygen Oxymizer LPM 3 lpm Comment: Diagnosis: COPD exacerbation, hypoxia 02/12/23 09:00 OT Screen per Nursing Assess ONCE Comment: Protocol Order Physician Instructions: Greater than 3 points order OT Admission Screening Reason For Exam: Triggered on Admission Diagnosis: COPD exacerbation, hypoxia Open Wound/Cellutlitis/Pressure Ulcers: No Acute Fx/ORIF/Change in wt bearing status: No Severe MUSCULOSKELETAL pain: No ADL Dysfunction: Yes: been going to rehab Acute CVA w/Hemiparesis/Hemiplegia: No Decreased Functional Mobility/Strength: Yes Sprain/Strain: No Acute Post-op Mobility Dysfunction: No Total Points: 4 PT Screen per Nursing Assess ONCE Comment: Protocol Order Physician Instructions: Greater than 3 points order PT Admission Screenin Reason For Exam: Triggered on Admission Diagnosis: COPD exacerbation, hypoxia Open Wound/Cellutlitis/Pressure Ulcers: No Acute Fx/ORIF/Change in wt bearing status: No Severe MUSCULOSKELETAL pain: No ADL Dysfunction: Yes: been going to rehab Acute CVA w/Hemiparesis/Hemiplegia: No Decreased Functional Mobility/Strength: Yes Sprain/Strain: No Acute Post-op Mobility Dysfunction: No Total Points: 4 ST Screen per Nursing Assess ONCE Comment: Protocol Order Physician Instructions: Greater than [address] Admission Screening Reason For Exam: Triggered on Admission Diagnosis: COPD exacerbation, hypoxia CVA/Dyshpagia/Aphasia: No Cognitive Deficits: No Dehydration/Nutrition Deficit: No Reflux: No Oral-Motor Difficulties: No Pneumonia: Yes Group Home Resident: No Total Points: 5 02/13/23 09:05 RT Miscellaneous Order ROUTINE Comment: Physician Instructions: pt needs to use one of our Cpap's at [facility]. Reason For Exam: Diagnosis: COPD exacerbation, hypoxia 02/13/23 11:56 BiPap/CPAP ROUTINE Comment: Diagnosis: COPD exacerbation, hypoxia 02/14/23 07:01 Flutter Therapy UD Comment: Diagnosis: COPD exacerbation, hypoxia <RAHEEM BRYAN - Last Filed: 02/14/23 10:41> - Vitals & Intake/Output Vital Signs: Vital Signs Temperature 97.2 F 02/14/23 12:00 Pulse Rate 68 02/14/23 12:00 Respiratory Rate 18 02/14/23 12:00 Blood Pressure 154/79 02/14/23 12:00 O2 Sat by Pulse Oximetry 92 L 02/14/23 12:00 Intake & Output: Intake & Output 02/12/23 02/13/23 02/14/23 02/15/23 11:59 11:59 11:59 11:59 Intake Total 400 1350 1020 Output Total 1300 900 Balance 400 50 120 Weight 150.5 kg - Lab Result Diagrams: 02/14/23 04:19 02/14/23 04:19 Lab Results-Last 24 Hrs: Lab Results-Last 24 Hours 02/14/23 02/14/23 Range/Units 04:19 11:28 POC Glucometer 215 H (74 to 106) mg/dL Albumin 2.8 L (3.5-5.0) g/dL Micro Results-Entire Visit: Microbiology 02/11/23 19:25 Blood Culture - Preliminary Blood 02/11/23 18:23 Blood Culture - Preliminary Blood - Procedures and Test Procedures and Tests throughout Hospitalization: Therapy Orders & Screens 02/11/23 17:20 Respiratory Therapy Assessment DAILY Comment: 02/11/23 23:00 RT Screen per Nursing Assess ONCE Comment: Protocol Order Physician Instructions: Greater than 3 points order RT Admission Screen Reason For Exam: Triggered on Admission Diagnosis: COPD exacerbation, hypoxia Diagnosis: COPD exacerbation, hypoxia Pneumonia: Yes Home O2: No Asthma: No CHF: Yes Home CPAP/BIPAP: Yes Home Nebs/MDI: No Total Points: 11 02/11/23 23:27 Oxygen Oxymizer LPM 3 lpm Comment: Diagnosis: COPD exacerbation, hypoxia 02/12/23 09:00 OT Screen per Nursing Assess ONCE Comment: Protocol Order Physician Instructions: Greater than 3 points order OT Admission Screening Reason For Exam: Triggered on Admission Diagnosis: COPD exacerbation, hypoxia Open Wound/Cellutlitis/Pressure Ulcers: No Acute Fx/ORIF/Change in wt bearing status: No Severe MUSCULOSKELETAL pain: No ADL Dysfunction: Yes: been going to rehab Acute CVA w/Hemiparesis/Hemiplegia: No Decreased Functional Mobility/Strength: Yes Sprain/Strain: No Acute Post-op Mobility Dysfunction: No Total Points: 4 PT Screen per Nursing Assess ONCE Comment: Protocol Order Physician Instructions: Greater than 3 points order PT Admission Screenin Reason For Exam: Triggered on Admission Diagnosis: COPD exacerbation, hypoxia Open Wound/Cellutlitis/Pressure Ulcers: No Acute Fx/ORIF/Change in wt bearing status: No Severe MUSCULOSKELETAL pain: No ADL Dysfunction: Yes: been going to rehab Acute CVA w/Hemiparesis/Hemiplegia: No Decreased Functional Mobility/Strength: Yes Sprain/Strain: No Acute Post-op Mobility Dysfunction: No Total Points: 4 ST Screen per Nursing Assess ONCE Comment: Protocol Order Physician Instructions: Greater than [address] Admission Screening Reason For Exam: Triggered on Admission Diagnosis: COPD exacerbation, hypoxia CVA/Dyshpagia/Aphasia: No Cognitive Deficits: No Dehydration/Nutrition Deficit: No Reflux: No Oral-Motor Difficulties: No Pneumonia: Yes Group Home Resident: No Total Points: 5 02/13/23 09:05 RT Miscellaneous Order ROUTINE Comment: Physician Instructions: pt needs to use one of our Cpap's at [facility]. Reason For Exam: Diagnosis: COPD exacerbation, hypoxia 02/13/23 11:56 BiPap/CPAP ROUTINE Comment: Diagnosis: COPD exacerbation, hypoxia 02/14/23 07:01 Flutter Therapy UD Comment: Diagnosis: COPD exacerbation, hypoxia <DENISE CONNORS - Last Filed: 02/15/23 09:50> Discharge Exam General Appearance: no apparent distress, alert Neurologic Exam: alert, oriented x 3, cooperative, normal mood/affect, nml cerebellar function, sensation nml, No motor deficits Eye Exam: PERRL, EOMI, eyes nml inspection Ears, Nose, Throat Exam: normal ENT inspection, pharynx normal, moist mucous membranes Neck Exam: normal inspection, non-tender, supple, full range of motion Respiratory Exam: normal breath sounds, lungs clear, No respiratory distress Cardiovascular Exam: regular rate/rhythm, normal heart sounds Gastrointestinal/Abdomen Exam: soft, No tenderness, No mass Pelvic Exam: deferred Rectal Exam: deferred Back Exam: normal inspection, normal range of motion, No CVA tenderness, No vertebral tenderness Extremity Exam: normal inspection, normal range of motion Skin Exam: normal color, warm, dry <RAHEEM BRYAN - Last Filed: 02/14/23 10:41> Final Diagnosis/Problem List - Final Discharge Diagnosis/Problem (1) Pneumonia Status: Acute Code(s): J18.9 - PNEUMONIA, UNSPECIFIED ORGANISM (2) COPD exacerbation Status: Acute Code(s): J44.1 - CHRONIC OBSTRUCTIVE PULMONARY DISEASE W (ACUTE) EXACERBATION (3) Elevated d-dimer Status: Acute Code(s): R79.89 - OTHER SPECIFIED ABNORMAL FINDINGS OF BLOOD CHEMISTRY (4) Acute on chronic renal failure Status: Acute Code(s): N17.9 - ACUTE KIDNEY FAILURE, UNSPECIFIED; N18.9 - CHRONIC KIDNEY DISEASE, UNSPECIFIED (5) Obesity, morbid, BMI 50 or higher Status: Chronic Code(s): E66.01 - MORBID (SEVERE) OBESITY DUE TO EXCESS CALORIES (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 Code(s): Z79.01 - LONGTERM (CURRENT) USE OF ANTICOAGULANTS (7) Enlarged heart Status: Chronic Code(s): I51.7 - CARDIOMEGALY (8) HTN (hypertension) Status: Chronic Code(s): I10 - ESSENTIAL (PRIMARY) HYPERTENSION (9) Insomnia Status: Acute Code(s): G47.00 - INSOMNIA, UNSPECIFIED (10) HEATHER (obstructive sleep apnea) Status: Chronic Code(s): G47.33 - OBSTRUCTIVE SLEEP APNEA (ADULT) (PEDIATRIC) (11) Acute hyperglycemia Status: Acute Assessment & Plan: (1) Pneumonia Current Visit: Yes Status: Acute Assessment & Plan: -Tele - Chest XR 02/11/23 Portable chest demonstrates diffuse left lung and lesser degree right base patchy airspace disease. Rule out Covid 19 pneumonia. Heart enlarged obscuring left lung base. Bony thorax intact with osteopenia and mild degenerative changes. - Cough with yellow thick sputum - Rocephin and zithromax - Duonebs, solumedrol - Mucinex - RSV/ Flu/COVID negative - 3LNC- baseline RA - WBC improved 12.9 02/13 - WBC improved 11.1 - Continues to require 2LNC - refuses home o2 if needed - Continues to cough up small amount of yellow sputum, no hemoptysis 02/14 - WBC 9.6- leukocytosis resolved - RA- 92 %- no longer requiring oxygen - will d/c with antibiotics Code(s): J18.9 - PNEUMONIA, UNSPECIFIED ORGANISM (2) COPD exacerbation Current Visit: Yes Status: Acute Assessment & Plan: - Follows Dr. Kowalski - See Pneumonia plan above. Code(s): J44.1 - CHRONIC OBSTRUCTIVE PULMONARY DISEASE W (ACUTE) EXACERBATION (3) Elevated d-dimer Current Visit: Yes Status: Acute Assessment & Plan: - D-dimer 0.64 - Unable to do CT with IV contrast d/t LLUVIA - VQ scan scheduled for tomorrow - US BLLE today - + LLE edema and warmth - Pt reports chronic edema of LLE 02/13/23 - VQ scan - negative for PE - US BLLE negative for DVT Code(s): R79.89 - OTHER SPECIFIED ABNORMAL FINDINGS OF BLOOD CHEMISTRY (4) Acute on chronic renal failure Current Visit: Yes Status: Acute Assessment & Plan: - Follows with Dr. Cisneros- Nephrology - Diuretics prn - will hold for now - Avoid NSAIDs - Follow I/Os - Baseline creat 1.17 - Creat 1.67, BUN 25, GFR 35.1- trend 02/13 - LLUVIA improving- trend labs 02/14 - Continued LLUVIA- pt has not been eating and drinking well - F/u with nephrology and PCP as scheduled for repeat labs. 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 If kidney function improved can go back to 20mg daily. 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 - Recommend OP f/u with cardiology for further evaluation - Hx HEATHER with noncompliance Code(s): I51.7 - CARDIOMEGALY (8) HTN (hypertension) Current Visit: Yes Status: Chronic Assessment & Plan: - stable - cont home meds Code(s): I10 - ESSENTIAL (PRIMARY) HYPERTENSION (9) Insomnia Current Visit: Yes Status: Acute Assessment & Plan: - melatonin added @ HS Code(s): G47.00 - INSOMNIA, UNSPECIFIED (10) HEATHER (obstructive sleep apnea) Current Visit: Yes Status: Chronic Assessment & Plan: - not wearing cpap at home - Cpap ordered IP. Code(s): G47.33 - OBSTRUCTIVE SLEEP APNEA (ADULT) (PEDIATRIC) (11) Acute hyperglycemia Current Visit: Yes Status: Acute Assessment & Plan: - R/T steriods - accuchecks AC/HS, low dose s/s. - A1C 5.23 Code(s): R73.9 - HYPERGLYCEMIA, UNSPECIFIED <RAHEEM BRYAN - Last Filed: 02/14/23 10:41> - Discharge Discharge Date: 02/14/23 <RAHEEM BRYAN - Last Filed: 02/14/23 10:41> <DENISE CONNORS - Last Filed: 02/15/23 09:50> - Discharge Disposition: Home, Self-Care Condition: Stable Prescriptions: New Rivaroxaban 10 mg Tablet [Xarelto 10 mg Tablet] 15 mg PO HS 30 Days #30 tablet Rivaroxaban [Xarelto] 5 mg PO HS 30 Days #60 tablet Azithromycin 250 mg [Zithromax 250 MG TABLET] 250 mg PO DAILY 2 Days #2 tablet Cefdinir 300 mg PO BID 5 Days #10 cap Albuterol Sulfate [Albuterol Sulfate Hfa] 8.5 gm IH Q4-6HPRN PRN 30 Days #1 PRN Reason: Shortness Of Breath/Wheezing Fluticasone/Salmeterol [Advair 100-50 Diskus] 1 each IH BID #1 blist Continue Furosemide 40 mg [Lasix 40 MG] 40 mg PO DAILY Allopurinol 300 mg [Zyloprim 300 mg] 300 mg PO QHS Oxybutynin Chloride [Oxybutynin Chloride ER] 10 mg PO DAILY Ferrous Sulfate 325 mg PO DAILY Cyanocobalamin (Vitamin B-12) [Vitamin B-12] 500 mcg PO DAILY Carvedilol [Coreg ] 6.25 mg PO DAILY Discontinued Rivaroxaban [Xarelto] 20 mg PO QHS Instructions: Pneumonia, Adult (DC) Additional Instructions: YOU HAVE AN APT WITH PHYSICAL THERAPY WED 02/19@3 PM Please follow up with nephrology, pulmonology, and cardiology as scheduled. Stop Xarelto 20mg daily and start Xarelto 15mg daily. Labs will need to be rechecked before you can resume the 20mg dose. Follow up with: LEXIE KOWALSKI [NON-STAFF PHY W/O PRIVILEGES] - 03/05/23 2:00 pm ([place] Office) MELBA MCGILL MD [Primary Care Provider] - 02/20/23 3:30 pm ELLA CISNEROS [CONSULTING PHYSICIAN] - 03/03/23 3:00 pm ([place] [facility]) ANGIE Encounter - ANGIE Encounter Attestation ANGIE Encounter Attestation: "ArturopersonalgustavoeenSHRUTI Macias on 02/14/2023 andhavediscussed pertinent aspects of their care with Raheem Hope-Madyson agree with the history, physical exam (any modifications based on my personal exam will be noted below), assessment, and plan as outlined in original note. Please see immediately below for my summary of findings and additional assessment and plan along with any meaningful corrections/explanations to the Subjective/Objective portions of the ANGIE note will be noted." My portion of the encounter took place via telemedicine. <DENISE CONNORS - Last Filed: 02/15/23 09:50>
[2023-02-14] MEDS: FEOSOL 325 MG PO SCH (10:51)
[2023-02-14] MEDS: MUCINEX DM 600/30MG PO SCH (10:51)
[2023-02-14] MEDS: solu-MEDROL 40 MG, Sterile H2O 10 ml 1 ML IV SCH ×2 (10:51)
[2023-02-14] MEDS: ROCEPHIN 1 Gm-D5w 50 ml Bag** 1 G/50 ML IVPB IV SCH (10:51)
[2023-02-14] MEDS: Coreg PO SCH (10:51)
[2023-02-14] MEDS: Zithromax 500 MG/ 250 ML NaCl Premix 500 MG/250 ML IVPB IV SCH (11:30)
[2023-02-14 12:45] VITALS: BP 154/79; PULSE 68; TEMP 97.2; O2SAT 92
[2023-02-14 13:57] LABS: ALBUMIN 2.8 g/dL (3.5-5.0)
== END 2023-02-14 14:36 | disposition home or self-care (01) ==
LOC: ED 16:26 → MED SURG 21:57
PROVIDERS: ADMIT Internal Medicine Nephrology; ATTEND Internal Medicine Nephrology
DX: J18.9 Pneumonia, unspecified organism (principal); J44.1 Chronic obstructive pulmonary disease with (acute) exacerbation; N17.9 Acute kidney failure, unspecified; E66.01 Morbid (severe) obesity due to excess calories; I12.9 Hypertensive chronic kidney disease with stage 1 through stage 4 chronic kidney disease, or unspecified chronic kidney disease; N18.30 Chronic kidney disease, stage 3 unspecified; I51.7 Cardiomegaly; I50.9 Heart failure, unspecified; G47.00 Insomnia, unspecified; G47.33 Obstructive sleep apnea (adult) (pediatric); R73.9 Hyperglycemia, unspecified; E78.5 Hyperlipidemia, unspecified; I48.91 Unspecified atrial fibrillation; Z79.01 Long term (current) use of anticoagulants; Z79.899 Other long term (current) drug therapy; Z20.828 Contact with and (suspected) exposure to other viral communicable diseases
CPT/HCPCS: 0241U; 36000; 36415; 71045; 71046; 78582; 80053; 82947; 83036; 83880; 84484; 85025; 85027; 85379; 87040; 93005; 93041; 93970; 94640; 94660; 94667; 94760; 94762; 96365; 96367; 96374; 99284; A9540; A9567; Q3014; 93268; J0456; J0696; J2920; J2930; A9270-GY; G0378

== ENCOUNTER 2023-04-03 15:00 | Observation (INO) | payer OTHER ==
[2023-04-03] MEDS ORDERED: DUONEB 0.5-3 MG/3 ml Neb IH ONE (15:26)
[2023-04-03] MEDS: DUONEB 0.5-3 MG/3 ml Neb IH ONE (15:28)
[2023-04-03] MEDS ORDERED: Zithromax 500 MG/ 250 ML NaCl Premix 500 MG/250 ML IVPB IV ONE (15:28)
[2023-04-03] MEDS ORDERED: ROCEPHIN 2 Gm-D5w 50ML BAG** 2 G/50 ML IVPB IV ONE (15:28)
[2023-04-03] MEDS: Zithromax 500 MG/ 250 ML NaCl Premix 500 MG/250 ML IVPB IV STA (15:29)
[2023-04-03] MEDS: ROCEPHIN 2 Gm-D5w 50ML BAG** 2 G/50 ML IVPB IV STA (15:30)
[2023-04-03 15:50] LABS: Absolute Neutrophil Ct (ANC) 2.92 x10^3/uL (1.4-6.9); BASOPHIL % 0.7 % (0.0-0.4); Basophil (Absolute #) 0.03 x10^3/uL (0-0.4); Eosinophil % 0.7 % (0.00-5.0); Eosinophil (Absolute #) 0.03 x10^3/uL (0-0.5); Hematocrit 38.6 % (35-47); Hemoglobin 11.7 g/dL (12.0-16.0); IMMATURE GRAN # 0.02 x10^3u/L (0.00-0.03); IMMATURE GRAN % 0.4 % (0.00-0.4); Lymphocyte (Absolute #) 1.16 x10^3/uL (1.0-4.6); Lymphocytes % 25.2 % (24.0-44.0); Mean Cell Volume 100.8 fL (78-100); Mean Corpuscular Hemoglobin 30.5 pg (26-32); Mean Corpuscular Hgb Concent. 30.3 g/dL (32-36); Monocyte (Absolute #) 0.45 x10^3/uL (0.0-1.3); Monocytes % 9.8 % (0.0-12.0); Neutrophil % 63.2 % (36.0-66.0); Platelet Count 233 x10^3/uL (150-450); Red Blood Count 3.83 x10^6/uL (4.1-5.4); Red Cell Distribution Width 15.1 % (11.5-14.0); White Blood Count 4.6 x10^3/uL (4.0-10.5)
[2023-04-03 16:03] LABS: ALBUMIN 4.2 g/dL (3.5-5.0); ANION GAP 16.9 MEQ/L (5-15); BILIRUBIN,TOTAL 3.2 mg/dL (0.2-1.3); Calcium 9.4 mg/dL (8.4-10.2); Creatinine 1 1.41 mg/dL (0.52-1.04); MAGNESIUM 1.8 mg/dL (1.6-2.3); Potassium 3.9 mmol/L (3.5-5.1); Total Protein 7.6 g/dL (6.3-8.2)
--- NOTE | 2023-04-03 16:18 | XRAY ---
Indication: Cough. Hypoxia. Pneumonia. Comparison: February 13, 2023 Portable chest again demonstrates diffuse left lung consolidating/nonconsolidating airspace disease minimally improved. Stable mild right base airspace disease. Heart remains enlarged. No new cardiopulmonary abnormalities.
--- NOTE | 2023-04-03 16:20 | ERPHSYRPT ---
- History of Present Illness Time Seen by Provider: 04/03/23 15:03 Source: patient Exam Limitations: no limitations Patient Subjective Stated Complaint: pt states she has pneumonia Triage Nursing Assessment: pt ambulated into the er with walker; pt is axo x4; c/o cough; pt states SOB; dry hacking cough present; no respiratory distress present; O2 on arrival was 91% on room air; pt was put on 2L and O2 is at 94%; clear lung sounds in all lobes; skin PDW; hypertensive; tachycardic Physician History: 57 years old female with history of COPD, congestive heart failure, atrial fibrillation on Xarelto presented in the ER from primary care office with increasing cough and hypoxic as patient's oxygen saturation was 88% resting with supplementation of 2 L oxygen and it improved to 94%. Patient reports coughing up yellow sputum moderate in amount. Patient reports she recently had pneumonia, was hospitalized and had a CAT scan done 3 days ago which showed persistent pneumonia. Patient is also in A-fib with RVR on presentation with heart rate in 130s. Denies any chest pain. Patient reports getting short of breath with minimal activity. Has history of stroke with left-sided residual weakness which is not any worse than usual. Denies any fever or chills. Allergies/Adverse Reactions: No Known Drug Allergies Allergy (Verified 04/03/23 15:03) Home Medications: Allopurinol 300 mg [Zyloprim 300 mg] 300 mg PO QHS 02/11/23 [History] Carvedilol [Coreg ] 6.25 mg PO DAILY 02/11/23 [History] Ferrous Sulfate 325 mg PO DAILY 02/11/23 [History] Furosemide 40 mg [Lasix 40 MG] 40 mg PO DAILY 02/11/23 [History] Oxybutynin Chloride [Oxybutynin Chloride ER] 10 mg PO DAILY 02/11/23 [History] Rivaroxaban 10 mg Tablet [Xarelto 10 mg Tablet] 20 mg PO HS 04/03/23 [History] Hx Tetanus, Diphtheria Vaccination/Date Given: No (unsure) Hx Influenza Vaccination/Date Given: No Hx Pneumococcal Vaccination/Date Given: Yes Travel Risk - International Travel Have you traveled outside of the country in past 3 weeks: No - Coronavirus Screening Are you exhibiting any of the following symptoms?: Yes Symptoms: Cough: New Onset, Shortness of Breath Close contact with a COVID-19 positive Pt in past 14-21 Days: No - Vaccine Status Have you recieved a Covid-19 vaccination: No - Review of Systems Constitutional: Fatigue, Weakness Eyes: No Symptoms Ears, Nose, & Throat: No Symptoms Respiratory: Cough, Dyspnea, Dyspnea on Exertion (CHAVEZ), Wheezing Cardiac: Edema, Palpitations Abdominal/Gastrointestinal: No Symptoms Genitourinary Symptoms: No Symptoms Musculoskeletal: Arthralgias Skin: No Symptoms Neurological: No Headache Endocrine: No Symptoms Hematologic/Lymphatic: Easy Bleeding Immunological/Allergic: No Symptoms - Past Medical History Pertinent Past Medical History: Yes Neurological History: Stroke ENT History: No Pertinent History Cardiac History: Arrhythmia, Congestive Heart Failure, High Cholesterol, Hypertension Respiratory History: Pneumonia, Sleep Apnea Endocrine Medical History: No Pertinent History Musculoskeletal History: Osteoarthritis GI Medical History: GERD History: Renal Disease Psycho-Social History: No Pertinent History Female Reproductive Disorders: No Pertinent History Other Medical History: afib, gout - Past Surgical History Past Surgical History: No - Social History Smoking Status: Never smoker Exposure to second hand smoke: No Drug Use: none Patient Lives Alone: Yes - Nursing Vital Signs Nursing Vital Signs: Initial Vital Signs Temperature 97.2 F 04/03/23 15:01 Pulse Rate 142 H 04/03/23 15:01 Respiratory Rate 28 H 04/03/23 15:01 Blood Pressure 141/117 04/03/23 15:01 O2 Sat by Pulse Oximetry 91 L 04/03/23 15:01 Pain Scale Pain Intensity 0 - Physical Exam General Appearance: no apparent distress, alert Eye Exam: PERRL/EOMI Ears, Nose, Throat Exam: hearing grossly normal, normal ENT inspection Neck Exam: normal inspection, non-tender, supple, full range of motion Respiratory Exam: diminished breath sounds, rhonchi, wheezing Cardiovascular/Chest Exam: tachycardia, irregular Abdominal/Gastrointestinal Exam: soft, normal bowel sounds, No tenderness Extremity Exam: non-tender, normal range of motion Neurologic Exam: alert, oriented x 3, cooperative, strategy associate II-XII nml as tested Skin Exam: normal color SpO2 Interpretation: O2 applied SpO2: 95 O2 Delivery: Nasal Cannula - Course EKG Interpreted by Me: RATE (19), A-fib, NORMAL AXIS, Q-wave, Non-specific ST Changes Ordered Tests: Active Orders 24 hr Category Date Time Status Final Cleaner STAT Care 04/03/23 15:20 Active EKG-ER Only STAT Care 04/03/23 15:19 Active IV Insertion STAT Care 04/03/23 15:19 Active Oxygen-ED Only Nasal Cannula 2 lpm Care 04/03/23 15:19 Active CHEST 1 VIEW (PORTABLE) Stat Exams 04/03/23 15:19 Completed BLOOD CULTURE Stat Lab 04/03/23 15:40 Received CBC W DIFF Stat Lab 04/03/23 15:30 Completed CMP Stat Lab 04/03/23 15:30 Completed Lactic Acid Stat Lab 04/03/23 15:19 Completed MAGNESIUM Stat Lab 04/03/23 15:30 Completed NT PRO BNPII Stat Lab 04/03/23 15:30 Completed TROPONIN Q4H Lab 04/03/23 15:30 Completed TROPONIN Q4H Lab 04/03/23 19:30 Ordered TROPONIN Q4H Lab 04/03/23 23:30 Ordered Respiratory Therapy Assessment DAILY RT 04/03/23 15:43 Active Medication Summary Generic Name Dose Route Start Last Admin Trade Name Freq PRN Reason Stop Dose Admin Diltiazem HCl 100 mls @ 5 mls/hr 04/03/23 16:29 Cardizem Drip 100 Mg/100 Ml D5w IV 05/03/23 16:28 .Q20H PRN HEART RATE/ A-FIB Protocol 5 MG/HR Discontinued Medications Generic Name Dose Route Start Last Admin Trade Name Freq PRN Reason Stop Dose Admin Albuterol/Ipratropium 3 ml 04/03/23 15:19 04/03/23 15:28 Ipratropium/Albuterol Sulfate 3 Ml Ampul.Neb IH 04/03/23 15:20 3 ml STAT ONE Administration Albuterol/Ipratropium Confirm 04/03/23 15:26 Ipratropium/Albuterol Sulfate 3 Ml Ampul.Neb Administered 04/03/23 15:27 Dose 3 ml IH .STK-MED ONE Diltiazem HCl 10 mg 04/03/23 16:29 04/03/23 16:36 Diltiazem Hcl Iv 5 Mg/Ml Vial IV 04/03/23 16:30 10 mg STAT ONE Administration Diltiazem HCl Confirm 04/03/23 16:36 Diltiazem Hcl Iv 5 Mg/Ml Vial Administered 04/03/23 16:37 Dose 50 mg IV .STK-MED ONE Ceftriaxone Sodium/Dextrose 2 g in 50 mls @ 100 mls/hr 04/03/23 15:19 04/03/23 16:08 Rocephin 2 Gm-D5w 50ml Bag IV 04/03/23 15:48 Infused STAT STA Infusion Azithromycin 500 mg in 250 mls @ 250 mls/hr 04/03/23 15:19 04/03/23 16:37 Zithromax 500 Mg/ 250 Ml Nacl Premix IV 04/03/23 16:18 Infused STAT STA Infusion Azithromycin Confirm 04/03/23 15:28 Zithromax 500 Mg/ 250 Ml Nacl Premix Administered 04/03/23 15:29 Dose 500 mg in 250 mls @ ud IV .STK-MED ONE Ceftriaxone Sodium/Dextrose Confirm 04/03/23 15:28 Rocephin 2 Gm-D5w 50ml Bag Administered 04/03/23 15:29 Dose 2 g in 50 mls @ ud IV .STK-MED ONE Lab/Rad Data: Laboratory Result Diagrams 04/03/23 15:30 04/03/23 15:30 Laboratory Results 04/03/23 04/03/23 04/03/23 Range/Units 15:45 15:30 15:30 WBC (4.0-10.5) x10^3/uL RBC (4.1-5.4) x10^6/uL Hgb (12.0-16.0) g/dL Hct (35-47) % MCV (78-100) fL MCH (26-32) pg MCHC (32-36) g/dL RDW (11.5-14.0) % Plt Count (150-450) x10^3/uL MPV (7.5-11.0) fL Gran % (36.0-66.0) % Immature Gran % (Auto) (0.00-0.4) % Nucleat RBC Rel Count (0.00-0.1) % Eos # (Auto) (0-0.5) x10^3/uL Immature Gran # (Auto) (0.00-0.03) x10^3u/L Absolute Lymphs (auto) (1.0-4.6) x10^3/uL Absolute Monos (auto) (0.0-1.3) x10^3/uL Absolute Nucleated RBC (0.00-0.01) x10^3u/L Lymphocytes % (24.0-44.0) % Monocytes % (0.0-12.0) % Eosinophils % (0.00-5.0) % Basophils % (0.0-0.4) % Absolute Granulocytes (1.4-6.9) x10^3/uL Basophils # (0-0.4) x10^3/uL Sodium (137-145) mmol/L Potassium (3.5-5.1) mmol/L Chloride (98-107) mmol/L Carbon Dioxide (22-30) mmol/L Anion Gap (5-15) MEQ/L BUN (7-17) mg/dL Creatinine (0.52-1.04) mg/dL Estimated GFR ML/MIN Glucose (74-106) mg/dL Lactic Acid (0.4-2.0) Calcium (8.4-10.2) mg/dL Magnesium (1.6-2.3) mg/dL Total Bilirubin (0.2-1.3) mg/dL AST (14-36) U/L ALT (0-35) U/L Alkaline Phosphatase (38-126) U/L Troponin I < 0.012 (0.000-0.034) ng/mL NT-Pro-B Natriuret Pep 5610 (<300) pg/mL Serum Total Protein (6.3-8.2) g/dL Albumin (3.5-5.0) g/dL Influenza Type A Ag NEGATIVE (NEGATIVE) Influenza Type B Ag NEGATIVE (NEGATIVE) RSV (PCR) POSITIVE A (NEGATIVE) SARS-CoV-2 (PCR) NEGATIVE (NEGATIVE) 04/03/23 04/03/23 04/03/23 Range/Units 15:30 15:30 15:19 WBC 4.6 (4.0-10.5) x10^3/uL RBC 3.83 L (4.1-5.4) x10^6/uL Hgb 11.7 L (12.0-16.0) g/dL Hct 38.6 (35-47) % MCV 100.8 H (78-100) fL MCH 30.5 (26-32) pg MCHC 30.3 L (32-36) g/dL RDW 15.1 H (11.5-14.0) % Plt Count 233 (150-450) x10^3/uL MPV 10.0 (7.5-11.0) fL Gran % 63.2 (36.0-66.0) % Immature Gran % (Auto) 0.4 (0.00-0.4) % Nucleat RBC Rel Count 0.0 (0.00-0.1) % Eos # (Auto) 0.03 (0-0.5) x10^3/uL Immature Gran # (Auto) 0.02 (0.00-0.03) x10^3u/L Absolute Lymphs (auto) 1.16 (1.0-4.6) x10^3/uL Absolute Monos (auto) 0.45 (0.0-1.3) x10^3/uL Absolute Nucleated RBC 0.00 (0.00-0.01) x10^3u/L Lymphocytes % 25.2 (24.0-44.0) % Monocytes % 9.8 (0.0-12.0) % Eosinophils % 0.7 (0.00-5.0) % Basophils % 0.7 (0.0-0.4) % Absolute Granulocytes 2.92 (1.4-6.9) x10^3/uL Basophils # 0.03 (0-0.4) x10^3/uL Sodium 139 (137-145) mmol/L Potassium 3.9 (3.5-5.1) mmol/L Chloride 102 (98-107) mmol/L Carbon Dioxide 24 (22-30) mmol/L Anion Gap 16.9 H (5-15) MEQ/L BUN 23 H (7-17) mg/dL Creatinine 1.41 H (0.52-1.04) mg/dL Estimated GFR 43.0 ML/MIN Glucose 92 (74-106) mg/dL Lactic Acid 2.3 H (0.4-2.0) Calcium 9.4 (8.4-10.2) mg/dL Magnesium 1.8 (1.6-2.3) mg/dL Total Bilirubin 3.20 H (0.2-1.3) mg/dL AST 20 (14-36) U/L ALT 15 (0-35) U/L Alkaline Phosphatase 104 (38-126) U/L Troponin I (0.000-0.034) ng/mL NT-Pro-B Natriuret Pep (<300) pg/mL Serum Total Protein 7.6 (6.3-8.2) g/dL Albumin 4.2 (3.5-5.0) g/dL Influenza Type A Ag (NEGATIVE) Influenza Type B Ag (NEGATIVE) RSV (PCR) (NEGATIVE) SARS-CoV-2 (PCR) (NEGATIVE) - Progress Progress: improved, re-examined Air Movement: fair Progress Note: 04/03/23 16:56 57-year-old is evaluated for increasing cough and difficulty breathing, patient was hypoxic at around 88% on room air while resting. She is on 2 L oxygen with saturation in mid 90s. Patient was in A-fib with RVR on presentation in the ER. She is given breathing treatment, started on Cardizem drip currently heart rate in low 100s. Chest x-ray is still showing some consolidative changes, started on Rocephin and Zithromax. White count is normal, negative initial troponins. Chemistry showed CKD with a creatinine of 1.4 which is around baseline. Patient is on Xarelto, low do not think needs CTA chest. Patient is also RSV positive. I have discussed with Dr. Fraire, reviewed history, workup and agreed with admission. I have discussed the results of workup with patient who understand and agrees with admission. Blood Culture(s) Obtained: Yes Antibiotics given: Yes Discussed with Dr.: Other (Dr. Fraire) Will see patient in: hospital (observation) Counseled pt/family regarding: lab results, diagnosis, rad results Medical Desision Making - Discussion of managment Care discussed with:: hospitalist Reviewed:: Test results Agreed on:: Treatment plan, place in obs Will see patient: in hospital - Diagnostic Testing Diagnostic test were ordered, analyzed, and reviewed by me: Yes Radiological Interpretation: Reviewed by me - Risk of complications The pt has a high risk of morbidity or mortality based on: Decision regarding hospitilization or escalation of hosp level of care - Departure Departure Disposition: Observation Clinical Impression: Atrial fibrillation with RVR, Pneumonia, RSV (acute bronchiolitis due to respiratory syncytial virus) Respiratory failure Qualifiers: Chronicity: acute Respiratory failure complication: hypoxia Qualified Code(s): J96.01 - Acute respiratory failure with hypoxia Condition: Stable Critical Care Time: No Referrals: MELBA WILHELM MD [Primary Care Provider] - Follow up/PCP as directed
[2023-04-03 16:25] LABS: INFLUENZA A NEGATIVE (NEGATIVE); INFLUENZA B NEGATIVE (NEGATIVE); RESPIRATORY SYNCTIAL VIRUS POSITIVE (NEGATIVE); SARS-CoV-2 Xpert Express NEGATIVE (NEGATIVE)
[2023-04-03] MEDS ORDERED: CARDIZEM DRIP 100 MG/100 ML D5W 100 ML IV PRN (16:29)
[2023-04-03] MEDS ORDERED: Cardizem IV 50 MG/10 ML IV ONE (16:36)
[2023-04-03] MEDS: Cardizem IV 50 MG/10 ML IV ONE (16:36)
[2023-04-03] MEDS ORDERED: CARDIZEM DRIP 100 MG/100 ML D5W 0 ML IV ONE (17:04)
[2023-04-03] MEDS ORDERED: VENTOLIN COMMON CANISTER IH PRN (20:44)
--- NOTE | 2023-04-03 20:45 | PCM.HP ---
History of Present Illness - Chief Complaint Chief Complaint: A-Fibrillation with RVR, acute hypoxic respiratory failure, pneumonia, RSV History of Present Illness: is a 57 year old female with history of COPD, CHF, atrial fibrillation on Xarelto presented in the ER from primary care office with increasing cough and hypoxic as patient's oxygen saturation was 88% resting with supplementation of 2 L oxygen and it improved to 94%. Patient reports coughing up yellow sputum moderate in amount. Patient reports she recently had pneumonia, was hospitalized and had a CAT scan done 3 days ago which showed persistent pneumonia. Patient is also in A-fib with RVR on presentation with heart rate in 130s. Denies any chest pain. Patient reports getting short of breath with minimal activity. Has history of stroke with left-sided residual weakness which is not any worse than usual. Denies any fever or chills. - Review of Systems Constitutional: No Fever, No Chills Eyes: No Symptoms Ears, Nose, & Throat: No Symptoms Respiratory: No Cough, No Short Of Breath Cardiac: No Chest Pain, No Edema, No Syncope Abdominal/Gastrointestinal: No Abdominal Pain, No Nausea, No Vomiting, No Diarrhea Genitourinary Symptoms: No Dysuria Musculoskeletal: No Back Pain, No Neck Pain Skin: No Rash Neurological: No Dizziness, No Focal Weakness, No Sensory Changes Psychological: No Symptoms Endocrine: No Symptoms Hematologic/Lymphatic: No Symptoms Immunological/Allergic: No Symptoms Medications & Allergies Home Medications: Home Medication List Allopurinol 300 mg [Zyloprim 300 mg] 300 mg PO QHS 02/11/23 [History Confirmed 04/03/23] Carvedilol [Coreg ] 6.25 mg PO BID 02/11/23 [History Confirmed 04/03/23] Ferrous Sulfate 325 mg PO DAILY 02/11/23 [History Confirmed 04/03/23] Furosemide 40 mg [Lasix 40 MG] 40 mg PO DAILY 02/11/23 [History Confirmed 04/03/23] Oxybutynin Chloride [Oxybutynin Chloride ER] 10 mg PO DAILY 02/11/23 [History Confirmed 04/03/23] Albuterol Sulfate [Albuterol Sulfate Hfa] 8.5 gm IH Q4-6HPRN PRN 30 Days #1 02/14/23 [Rx Confirmed 04/03/23] Fluticasone/Salmeterol [Advair 100-50 Diskus] 1 each IH BID #1 blist 02/14/23 [Rx Confirmed 04/03/23] Mecobalamin [B12 Active] 1,000 mcg PO DAILY 04/03/23 [History Confirmed 04/03/23] Rivaroxaban 10 mg Tablet [Xarelto 10 mg Tablet] 20 mg PO HS 04/03/23 [History Confirmed 04/03/23] Allergies/Adverse Reactions: Allergies Allergy/AdvReac Type Severity Reaction Status Date / Time No Known Drug Allergies Allergy Verified 04/03/23 15:03 - Past Medical History Past Medical History: Yes Neurological History: Stroke ENT History: No Pertinent History Cardiac History: Arrhythmia, Congestive Heart Failure, High Cholesterol, Hypertension Respiratory History: CHF, COPD, Pneumonia, Sleep Apnea Endocrine Medical History: No Pertinent History Musculoskelatal History: Osteoarthritis GI Medical History: GERD History: Renal Disease Pyscho-Social History: No Pertinent History Reproductive Disorders: No Pertinent History Comment: Atrial Fib, gout - Female History Are you now?: No - Past Surgical History Past Surgical History: No - Social History Smoking Status: Never smoker Exposure to second hand smoke: No Alcohol: None Drug Use: none - Physical Exam Vital Signs: Vital Signs - 24 hr Temp Pulse Resp BP BP Pulse Ox 04/03/23 19:50 98.7 F 96 H 24 147/95 97 04/03/23 19:26 96 H 24 97 04/03/23 18:14 98.7 F 98 H 24 147/95 98 04/03/23 18:10 95 04/03/23 17:01 95 04/03/23 17:01 117 H 14 122/87 95 04/03/23 16:31 129 H 17 138/103 95 04/03/23 16:00 115 H 25 H 144/106 95 04/03/23 15:31 135 H 19 120/99 93 L 04/03/23 15:28 106 H 16 95 04/03/23 15:02 117 H 22 141/117 95 04/03/23 15:01 97.2 F 142 H 28 H 141/117 94 L General Appearance: no apparent distress, alert Neurologic Exam: alert, oriented x 3, cooperative, normal mood/affect, nml cerebellar function, nml station & gait, sensation nml, No motor deficits Eye Exam: PERRL/EOMI, eyes nml inspection Ears, Nose, Throat Exam: normal ENT inspection, TMs normal, pharynx normal, moist mucous membranes Neck Exam: normal inspection, non-tender, supple, full range of motion Respiratory Exam: normal breath sounds, lungs clear, No respiratory distress Cardiovascular Exam: regular rate/rhythm, normal heart sounds, normal peripheral pulses Gastrointestinal/Abdomen Exam: soft, normal bowel sounds, No tenderness, No mass Back Exam: normal inspection, normal range of motion, No CVA tenderness, No vertebral tenderness Extremity Exam: normal inspection, normal range of motion, pelvis stable Skin Exam: normal color, warm, dry, No rash Lymphatic Exam: No adenopathy Results - Labs Lab/Micro Results: Lab Results-Last 24 Hours 04/03/23 04/03/23 04/03/23 Range/Units 15:19 15:30 15:30 WBC 4.6 (4.0-10.5) x10^3/uL RBC 3.83 L (4.1-5.4) x10^6/uL Hgb 11.7 L (12.0-16.0) g/dL Hct 38.6 (35-47) % MCV 100.8 H (78-100) fL MCH 30.5 (26-32) pg MCHC 30.3 L (32-36) g/dL RDW 15.1 H (11.5-14.0) % Plt Count 233 (150-450) x10^3/uL MPV 10.0 (7.5-11.0) fL Gran % 63.2 (36.0-66.0) % Immature Gran % (Auto) 0.4 (0.00-0.4) % Nucleat RBC Rel Count 0.0 (0.00-0.1) % Eos # (Auto) 0.03 (0-0.5) x10^3/uL Immature Gran # (Auto) 0.02 (0.00-0.03) x10^3u/L Absolute Lymphs (auto) 1.16 (1.0-4.6) x10^3/uL Absolute Monos (auto) 0.45 (0.0-1.3) x10^3/uL Absolute Nucleated RBC 0.00 (0.00-0.01) x10^3u/L Lymphocytes % 25.2 (24.0-44.0) % Monocytes % 9.8 (0.0-12.0) % Eosinophils % 0.7 (0.00-5.0) % Basophils % 0.7 (0.0-0.4) % Absolute Granulocytes 2.92 (1.4-6.9) x10^3/uL Basophils # 0.03 (0-0.4) x10^3/uL Sodium 139 (137-145) mmol/L Potassium 3.9 (3.5-5.1) mmol/L Chloride 102 (98-107) mmol/L Carbon Dioxide 24 (22-30) mmol/L Anion Gap 16.9 H (5-15) MEQ/L BUN 23 H (7-17) mg/dL Creatinine 1.41 H (0.52-1.04) mg/dL Estimated GFR 43.0 ML/MIN Glucose 92 (74-106) mg/dL Lactic Acid 2.3 H (0.4-2.0) Calcium 9.4 (8.4-10.2) mg/dL Magnesium 1.8 (1.6-2.3) mg/dL Total Bilirubin 3.20 H (0.2-1.3) mg/dL AST 20 (14-36) U/L ALT 15 (0-35) U/L Alkaline Phosphatase 104 (38-126) U/L Troponin I (0.000-0.034) ng/mL NT-Pro-B Natriuret Pep (<300) pg/mL Serum Total Protein 7.6 (6.3-8.2) g/dL Albumin 4.2 (3.5-5.0) g/dL Influenza Type A Ag (NEGATIVE) Influenza Type B Ag (NEGATIVE) RSV (PCR) (NEGATIVE) SARS-CoV-2 (PCR) (NEGATIVE) 04/03/23 04/03/23 04/03/23 Range/Units 15:30 15:30 15:45 WBC (4.0-10.5) x10^3/uL RBC (4.1-5.4) x10^6/uL Hgb (12.0-16.0) g/dL Hct (35-47) % MCV (78-100) fL MCH (26-32) pg MCHC (32-36) g/dL RDW (11.5-14.0) % Plt Count (150-450) x10^3/uL MPV (7.5-11.0) fL Gran % (36.0-66.0) % Immature Gran % (Auto) (0.00-0.4) % Nucleat RBC Rel Count (0.00-0.1) % Eos # (Auto) (0-0.5) x10^3/uL Immature Gran # (Auto) (0.00-0.03) x10^3u/L Absolute Lymphs (auto) (1.0-4.6) x10^3/uL Absolute Monos (auto) (0.0-1.3) x10^3/uL Absolute Nucleated RBC (0.00-0.01) x10^3u/L Lymphocytes % (24.0-44.0) % Monocytes % (0.0-12.0) % Eosinophils % (0.00-5.0) % Basophils % (0.0-0.4) % Absolute Granulocytes (1.4-6.9) x10^3/uL Basophils # (0-0.4) x10^3/uL Sodium (137-145) mmol/L Potassium (3.5-5.1) mmol/L Chloride (98-107) mmol/L Carbon Dioxide (22-30) mmol/L Anion Gap (5-15) MEQ/L BUN (7-17) mg/dL Creatinine (0.52-1.04) mg/dL Estimated GFR ML/MIN Glucose (74-106) mg/dL Lactic Acid (0.4-2.0) Calcium (8.4-10.2) mg/dL Magnesium (1.6-2.3) mg/dL Total Bilirubin (0.2-1.3) mg/dL AST (14-36) U/L ALT (0-35) U/L Alkaline Phosphatase (38-126) U/L Troponin I < 0.012 (0.000-0.034) ng/mL NT-Pro-B Natriuret Pep 5610 (<300) pg/mL Serum Total Protein (6.3-8.2) g/dL Albumin (3.5-5.0) g/dL Influenza Type A Ag NEGATIVE (NEGATIVE) Influenza Type B Ag NEGATIVE (NEGATIVE) RSV (PCR) POSITIVE A (NEGATIVE) SARS-CoV-2 (PCR) NEGATIVE (NEGATIVE) 04/03/23 04/03/23 04/03/23 Range/Units 17:50 19:30 19:34 WBC (4.0-10.5) x10^3/uL RBC (4.1-5.4) x10^6/uL Hgb (12.0-16.0) g/dL Hct (35-47) % MCV (78-100) fL MCH (26-32) pg MCHC (32-36) g/dL RDW (11.5-14.0) % Plt Count (150-450) x10^3/uL MPV (7.5-11.0) fL Gran % (36.0-66.0) % Immature Gran % (Auto) (0.00-0.4) % Nucleat RBC Rel Count (0.00-0.1) % Eos # (Auto) (0-0.5) x10^3/uL Immature Gran # (Auto) (0.00-0.03) x10^3u/L Absolute Lymphs (auto) (1.0-4.6) x10^3/uL Absolute Monos (auto) (0.0-1.3) x10^3/uL Absolute Nucleated RBC (0.00-0.01) x10^3u/L Lymphocytes % (24.0-44.0) % Monocytes % (0.0-12.0) % Eosinophils % (0.00-5.0) % Basophils % (0.0-0.4) % Absolute Granulocytes (1.4-6.9) x10^3/uL Basophils # (0-0.4) x10^3/uL Sodium (137-145) mmol/L Potassium (3.5-5.1) mmol/L Chloride (98-107) mmol/L Carbon Dioxide (22-30) mmol/L Anion Gap (5-15) MEQ/L BUN (7-17) mg/dL Creatinine (0.52-1.04) mg/dL Estimated GFR ML/MIN Glucose (74-106) mg/dL Lactic Acid Cancelled 1.8 (0.4-2.0) Calcium (8.4-10.2) mg/dL Magnesium (1.6-2.3) mg/dL Total Bilirubin (0.2-1.3) mg/dL AST (14-36) U/L ALT (0-35) U/L Alkaline Phosphatase (38-126) U/L Troponin I < 0.012 (0.000-0.034) ng/mL NT-Pro-B Natriuret Pep (<300) pg/mL Serum Total Protein (6.3-8.2) g/dL Albumin (3.5-5.0) g/dL Influenza Type A Ag (NEGATIVE) Influenza Type B Ag (NEGATIVE) RSV (PCR) (NEGATIVE) SARS-CoV-2 (PCR) (NEGATIVE) - Radiology Impressions Radiology Exams & Impressions: Radiology Procedures Category Date Time Status CHEST 1 VIEW (PORTABLE) Stat Exams 04/03/23 15:19 Completed - Other Procedures and Tests Respiratory Therapy 04/03/23 18:10 Oxygen Nasal Cannula 2 lpm 04/03/23 18:13 Respiratory Therapy Assessment DAILY 04/03/23 19:14 BiPap/CPAP ROUTINE Assessment/Plan (1) Atrial fibrillation with RVR Current Visit: Yes Status: Acute Assessment & Plan: Likely due to viral infection. Monitor, can increase BB if needed Continue Xarelto Code(s): I48.91 - UNSPECIFIED ATRIAL FIBRILLATION (2) Pneumonia Current Visit: Yes Status: Acute Assessment & Plan: Likely viral so stopping abx Code(s): J18.9 - PNEUMONIA, UNSPECIFIED ORGANISM (3) RSV (acute bronchiolitis due to respiratory syncytial virus) Current Visit: Yes Status: Acute Assessment & Plan: Duonebs PRN Supplemental O2 Telemedicine Encounter - Telemedicine Encounter Telemedicine Encounter: The entirety of this encounter was performed via Telemedicine"
[2023-04-03] MEDS: ZYLOPRIM 300 MG PO SCH (21:23)
[2023-04-03] MEDS: Coreg PO SCH (21:23)
[2023-04-03] MEDS: XARELTO 10 MG TABLET PO SCH (21:24)
[2023-04-03] MEDS ORDERED: XARELTO 10 MG TABLET PO SCH (22:00)
[2023-04-03] MEDS ORDERED: Coreg PO SCH (22:00)
[2023-04-03] MEDS ORDERED: ZYLOPRIM 300 MG PO SCH (22:00)
[2023-04-03] MEDS: DUONEB 0.5-3 MG/3 ml Neb IH SCH (22:53)
[2023-04-03] MEDS: Lopressor 25MG Tab PO ONE (23:05)
[2023-04-03] MEDS: FLUTICASONE IH SCH (23:06)
[2023-04-03] MEDS: SALMETEROL IH SCH (23:06)
--- NOTE | 2023-04-04 05:10 | PCM.NOTE ---
Date and Time: 04/04/23 2331 Subjective Assessment: Ms. Rader is a 57 year old female with a pmhx of COPD (baseline RA -follows with Dr. Kowalski), stroke (residual left sided weakness), CKD stage IIIB (follows with Dr. Cisneros), AFIB (on Xarelto), HLD, HTN, HEATHER, Gout, GERD and recent hospitalization for pneumonia 02/11/23-02/14/23, who presented to ED 04/03/23 under advisement of her PCP with complaints of progressive shortness of breath and productive cough with yellow sputum. Of note patient had CT scan on 03/31/23 showing Diffuse left lung and lesser degree right middle lobe consolidating airspace disease. Small left subpulmonic effusion. Reactive mediastinal lymph nodes. In ED, patient tachycardic, hypertensive, and hypoxic on presentation. E KG A-fib, NORMAL AXIS, Q-wave, Non-specific ST Changes (interpreted by ED physician). CXR showing diffuse left lung consolidating/nonconsolidating airspace disease which is minimally improved from 02/13/23. Lab findings remarkable for macrocytic, hyperchromic anemia with hgb at 11.7, GAP acidosis with GAP at 16.9 and LA at 2.3, BUN/Creat elevated but at 1.41 (baseline around 1.17), total bili at 3.20, and BNP at 5610. RSV positive. Patient received Cardizem (on drip), Duoneb, ceftriaxone/azithromycin in ED. Patient admitted with acute respiratory failure secondary to COPD exacerbation/RSV/Pneumonia, AFIB, and Cholelithiasis. 04/04/23: Met with patient bedside. Endorses improvement of shortness of breath, cough with white sputum. Discussed labs with noted improvement of creat, now at 1.16 which is her baseline. Discussed TBili elevation, patient with known cholelthiasis, which she reports she has been told she needed surgery but had to place on hold due to her AFIB. She does have a cardiology appt with Dr. Logan 04/15/23. Plans for RUQ US today. Denies fever,cp, abdominal pain, MAN, dizziness, N/V/D. <ELIANA MCCLELLAND - Last Filed: 04/04/23 09:13> Date and Time: 04/04/23 2033 <DENISE CONNORS - Last Filed: 04/04/23 23:21> - Review of Systems Constitutional: No Symptoms Eyes: No Symptoms Ears, Nose, & Throat: No Symptoms Respiratory: Cough, Short Of Breath, Wheezing Cardiac: No Symptoms Abdominal/Gastrointestinal: No Symptoms Genitourinary Symptoms: No Symptoms Musculoskeletal: No Symptoms Skin: No Symptoms Neurological: No Symptoms Psychological: No Symptoms Endocrine: No Symptoms Hematologic/Lymphatic: No Symptoms Immunological/Allergic: No Symptoms <ELIANA MCCLELLAND - Last Filed: 04/04/23 09:13> Objective Exam General Appearance: no apparent distress, obese Neurologic Exam: alert, oriented x 3, cooperative Skin Exam: normal color Eye Exam: PERRL Ears, Nose, Throat Exam: normal ENT inspection Neck Exam: normal inspection Respiratory Exam: crackles/rales, wheezing Cardiovascular Exam: tachycardia, irregular Gastrointestinal/Abdomen Exam: soft, normal bowel sounds Extremity Exam: normal inspection Back Exam: normal inspection Pelvic Exam: deferred Rectal Exam: deferred <ELIANA MCCLELLAND - Last Filed: 04/04/23 09:13> OBJECTIVE DATA Vital Signs: Vital Signs - 24 hr Temp Pulse Resp BP BP Pulse Ox 04/04/23 03:38 97.8 F 101 H 20 145/84 94 L 04/03/23 23:44 97.9 F 106 H 26 H 149/82 94 L 04/03/23 23:10 106 H 26 H 95 04/03/23 19:50 98.7 F 96 H 24 147/95 97 04/03/23 19:26 96 H 24 97 04/03/23 18:14 98.7 F 98 H 24 147/95 98 04/03/23 18:10 95 04/03/23 17:01 95 04/03/23 17:01 117 H 14 122/87 95 04/03/23 16:31 129 H 17 138/103 95 04/03/23 16:00 115 H 25 H 144/106 95 04/03/23 15:31 135 H 19 120/99 93 L 04/03/23 15:28 106 H 16 95 04/03/23 15:02 117 H 22 141/117 95 04/03/23 15:01 97.2 F 142 H 28 H 141/117 94 L Pain Assessment - Last Documented Pain Intensity 0 Intake and Output: Intake & Output 04/01/23 04/02/23 04/03/23 04/04/23 11:59 11:59 11:59 11:59 Weight 146.9 kg Lab Results: Lab Results-Last 24 Hours 04/03/23 04/03/23 04/03/23 Range/Units 15:19 15:30 15:30 WBC 4.6 (4.0-10.5) x10^3/uL RBC 3.83 L (4.1-5.4) x10^6/uL Hgb 11.7 L (12.0-16.0) g/dL Hct 38.6 (35-47) % MCV 100.8 H (78-100) fL MCH 30.5 (26-32) pg MCHC 30.3 L (32-36) g/dL RDW 15.1 H (11.5-14.0) % Plt Count 233 (150-450) x10^3/uL MPV 10.0 (7.5-11.0) fL Gran % 63.2 (36.0-66.0) % Immature Gran % (Auto) 0.4 (0.00-0.4) % Nucleat RBC Rel Count 0.0 (0.00-0.1) % Eos # (Auto) 0.03 (0-0.5) x10^3/uL Immature Gran # (Auto) 0.02 (0.00-0.03) x10^3u/L Absolute Lymphs (auto) 1.16 (1.0-4.6) x10^3/uL Absolute Monos (auto) 0.45 (0.0-1.3) x10^3/uL Absolute Nucleated RBC 0.00 (0.00-0.01) x10^3u/L Lymphocytes % 25.2 (24.0-44.0) % Monocytes % 9.8 (0.0-12.0) % Eosinophils % 0.7 (0.00-5.0) % Basophils % 0.7 (0.0-0.4) % Absolute Granulocytes 2.92 (1.4-6.9) x10^3/uL Basophils # 0.03 (0-0.4) x10^3/uL Sodium 139 (137-145) mmol/L Potassium 3.9 (3.5-5.1) mmol/L Chloride 102 (98-107) mmol/L Carbon Dioxide 24 (22-30) mmol/L Anion Gap 16.9 H (5-15) MEQ/L BUN 23 H (7-17) mg/dL Creatinine 1.41 H (0.52-1.04) mg/dL Estimated GFR 43.0 ML/MIN Glucose 92 (74-106) mg/dL Lactic Acid 2.3 H (0.4-2.0) Calcium 9.4 (8.4-10.2) mg/dL Magnesium 1.8 (1.6-2.3) mg/dL Total Bilirubin 3.20 H (0.2-1.3) mg/dL AST 20 (14-36) U/L ALT 15 (0-35) U/L Alkaline Phosphatase 104 (38-126) U/L Troponin I (0.000-0.034) ng/mL NT-Pro-B Natriuret Pep (<300) pg/mL Serum Total Protein 7.6 (6.3-8.2) g/dL Albumin 4.2 (3.5-5.0) g/dL Influenza Type A Ag (NEGATIVE) Influenza Type B Ag (NEGATIVE) RSV (PCR) (NEGATIVE) SARS-CoV-2 (PCR) (NEGATIVE) 04/03/23 04/03/23 04/03/23 Range/Units 15:30 15:30 15:45 WBC (4.0-10.5) x10^3/uL RBC (4.1-5.4) x10^6/uL Hgb (12.0-16.0) g/dL Hct (35-47) % MCV (78-100) fL MCH (26-32) pg MCHC (32-36) g/dL RDW (11.5-14.0) % Plt Count (150-450) x10^3/uL MPV (7.5-11.0) fL Gran % (36.0-66.0) % Immature Gran % (Auto) (0.00-0.4) % Nucleat RBC Rel Count (0.00-0.1) % Eos # (Auto) (0-0.5) x10^3/uL Immature Gran # (Auto) (0.00-0.03) x10^3u/L Absolute Lymphs (auto) (1.0-4.6) x10^3/uL Absolute Monos (auto) (0.0-1.3) x10^3/uL Absolute Nucleated RBC (0.00-0.01) x10^3u/L Lymphocytes % (24.0-44.0) % Monocytes % (0.0-12.0) % Eosinophils % (0.00-5.0) % Basophils % (0.0-0.4) % Absolute Granulocytes (1.4-6.9) x10^3/uL Basophils # (0-0.4) x10^3/uL Sodium (137-145) mmol/L Potassium (3.5-5.1) mmol/L Chloride (98-107) mmol/L Carbon Dioxide (22-30) mmol/L Anion Gap (5-15) MEQ/L BUN (7-17) mg/dL Creatinine (0.52-1.04) mg/dL Estimated GFR ML/MIN Glucose (74-106) mg/dL Lactic Acid (0.4-2.0) Calcium (8.4-10.2) mg/dL Magnesium (1.6-2.3) mg/dL Total Bilirubin (0.2-1.3) mg/dL AST (14-36) U/L ALT (0-35) U/L Alkaline Phosphatase (38-126) U/L Troponin I < 0.012 (0.000-0.034) ng/mL NT-Pro-B Natriuret Pep 5610 (<300) pg/mL Serum Total Protein (6.3-8.2) g/dL Albumin (3.5-5.0) g/dL Influenza Type A Ag NEGATIVE (NEGATIVE) Influenza Type B Ag NEGATIVE (NEGATIVE) RSV (PCR) POSITIVE A (NEGATIVE) SARS-CoV-2 (PCR) NEGATIVE (NEGATIVE) 04/03/23 04/03/23 04/03/23 Range/Units 17:50 19:30 19:34 WBC (4.0-10.5) x10^3/uL RBC (4.1-5.4) x10^6/uL Hgb (12.0-16.0) g/dL Hct (35-47) % MCV (78-100) fL MCH (26-32) pg MCHC (32-36) g/dL RDW (11.5-14.0) % Plt Count (150-450) x10^3/uL MPV (7.5-11.0) fL Gran % (36.0-66.0) % Immature Gran % (Auto) (0.00-0.4) % Nucleat RBC Rel Count (0.00-0.1) % Eos # (Auto) (0-0.5) x10^3/uL Immature Gran # (Auto) (0.00-0.03) x10^3u/L Absolute Lymphs (auto) (1.0-4.6) x10^3/uL Absolute Monos (auto) (0.0-1.3) x10^3/uL Absolute Nucleated RBC (0.00-0.01) x10^3u/L Lymphocytes % (24.0-44.0) % Monocytes % (0.0-12.0) % Eosinophils % (0.00-5.0) % Basophils % (0.0-0.4) % Absolute Granulocytes (1.4-6.9) x10^3/uL Basophils # (0-0.4) x10^3/uL Sodium (137-145) mmol/L Potassium (3.5-5.1) mmol/L Chloride (98-107) mmol/L Carbon Dioxide (22-30) mmol/L Anion Gap (5-15) MEQ/L BUN (7-17) mg/dL Creatinine (0.52-1.04) mg/dL Estimated GFR ML/MIN Glucose (74-106) mg/dL Lactic Acid Cancelled 1.8 (0.4-2.0) Calcium (8.4-10.2) mg/dL Magnesium (1.6-2.3) mg/dL Total Bilirubin (0.2-1.3) mg/dL AST (14-36) U/L ALT (0-35) U/L Alkaline Phosphatase (38-126) U/L Troponin I < 0.012 (0.000-0.034) ng/mL NT-Pro-B Natriuret Pep (<300) pg/mL Serum Total Protein (6.3-8.2) g/dL Albumin (3.5-5.0) g/dL Influenza Type A Ag (NEGATIVE) Influenza Type B Ag (NEGATIVE) RSV (PCR) (NEGATIVE) SARS-CoV-2 (PCR) (NEGATIVE) 04/03/23 Range/Units 23:36 WBC (4.0-10.5) x10^3/uL RBC (4.1-5.4) x10^6/uL Hgb (12.0-16.0) g/dL Hct (35-47) % MCV (78-100) fL MCH (26-32) pg MCHC (32-36) g/dL RDW (11.5-14.0) % Plt Count (150-450) x10^3/uL MPV (7.5-11.0) fL Gran % (36.0-66.0) % Immature Gran % (Auto) (0.00-0.4) % Nucleat RBC Rel Count (0.00-0.1) % Eos # (Auto) (0-0.5) x10^3/uL Immature Gran # (Auto) (0.00-0.03) x10^3u/L Absolute Lymphs (auto) (1.0-4.6) x10^3/uL Absolute Monos (auto) (0.0-1.3) x10^3/uL Absolute Nucleated RBC (0.00-0.01) x10^3u/L Lymphocytes % (24.0-44.0) % Monocytes % (0.0-12.0) % Eosinophils % (0.00-5.0) % Basophils % (0.0-0.4) % Absolute Granulocytes (1.4-6.9) x10^3/uL Basophils # (0-0.4) x10^3/uL Sodium (137-145) mmol/L Potassium (3.5-5.1) mmol/L Chloride (98-107) mmol/L Carbon Dioxide (22-30) mmol/L Anion Gap (5-15) MEQ/L BUN (7-17) mg/dL Creatinine (0.52-1.04) mg/dL Estimated GFR ML/MIN Glucose (74-106) mg/dL Lactic Acid (0.4-2.0) Calcium (8.4-10.2) mg/dL Magnesium (1.6-2.3) mg/dL Total Bilirubin (0.2-1.3) mg/dL AST (14-36) U/L ALT (0-35) U/L Alkaline Phosphatase (38-126) U/L Troponin I < 0.012 (0.000-0.034) ng/mL NT-Pro-B Natriuret Pep (<300) pg/mL Serum Total Protein (6.3-8.2) g/dL Albumin (3.5-5.0) g/dL Influenza Type A Ag (NEGATIVE) Influenza Type B Ag (NEGATIVE) RSV (PCR) (NEGATIVE) SARS-CoV-2 (PCR) (NEGATIVE) Radiology Exams: Radiology Procedures Category Date Time Status CHEST 1 VIEW (PORTABLE) Stat Exams 04/03/23 15:19 Completed <ELIANA MCCLELLAND - Last Filed: 04/04/23 09:13> Vital Signs: Vital Signs - 24 hr Temp Pulse Resp BP Pulse Ox 04/04/23 19:38 97.1 F 123 H 22 129/90 95 04/04/23 19:05 110 H 24 95 04/04/23 16:00 98.1 F 120 H 16 119/75 96 04/04/23 12:41 98 H 20 95 04/04/23 11:51 97.6 F 105 H 16 111/67 92 L 04/04/23 07:00 98.5 F 112 H 20 148/92 96 04/04/23 06:35 112 H 22 96 04/04/23 03:38 97.8 F 101 H 20 145/84 94 L 04/03/23 23:44 97.9 F 106 H 26 H 149/82 94 L Pain Assessment - Last Documented Pain Intensity 0 Intake and Output: Intake & Output 04/02/23 04/03/23 04/04/23 04/05/23 11:59 11:59 11:59 11:59 Intake Total 240 780 Balance 240 780 Weight 146.9 kg Lab Results: Lab Results-Last 24 Hours 04/03/23 04/04/23 04/04/23 Range/Units 23:36 06:25 06:25 WBC 4.2 (4.0-10.5) x10^3/uL RBC 3.50 L (4.1-5.4) x10^6/uL Hgb 10.7 L (12.0-16.0) g/dL Hct 35.4 (35-47) % MCV 101.1 H (78-100) fL MCH 30.6 (26-32) pg MCHC 30.2 L (32-36) g/dL RDW 15.4 H (11.5-14.0) % Plt Count 206 (150-450) x10^3/uL MPV 9.9 (7.5-11.0) fL Gran % 70.5 H (36.0-66.0) % Immature Gran % (Auto) 0.5 H (0.00-0.4) % Nucleat RBC Rel Count 0.0 (0.00-0.1) % Eos # (Auto) 0.05 (0-0.5) x10^3/uL Immature Gran # (Auto) 0.02 (0.00-0.03) x10^3u/L Absolute Lymphs (auto) 0.81 L (1.0-4.6) x10^3/uL Absolute Monos (auto) 0.32 (0.0-1.3) x10^3/uL Absolute Nucleated RBC 0.00 (0.00-0.01) x10^3u/L Lymphocytes % 19.4 L (24.0-44.0) % Monocytes % 7.7 (0.0-12.0) % Eosinophils % 1.2 (0.00-5.0) % Basophils % 0.7 (0.0-0.4) % Absolute Granulocytes 2.95 (1.4-6.9) x10^3/uL Basophils # 0.03 (0-0.4) x10^3/uL Sodium 136 L (137-145) mmol/L Potassium 3.6 (3.5-5.1) mmol/L Chloride 101 (98-107) mmol/L Carbon Dioxide 26 (22-30) mmol/L Anion Gap 12.0 (5-15) MEQ/L BUN 23 H (7-17) mg/dL Creatinine 1.16 H (0.52-1.04) mg/dL Estimated GFR 54.3 ML/MIN Glucose 104 (74-106) mg/dL Calcium 9.1 (8.4-10.2) mg/dL Magnesium 1.7 (1.6-2.3) mg/dL Total Bilirubin 2.30 H (0.2-1.3) mg/dL AST 20 (14-36) U/L ALT 13 (0-35) U/L Alkaline Phosphatase 86 (38-126) U/L Troponin I < 0.012 (0.000-0.034) ng/mL Serum Total Protein 6.3 (6.3-8.2) g/dL Albumin 3.5 (3.5-5.0) g/dL Procalcitonin 0.184 H (0.030-0.080) ng/mL TSH 3rd Generation 0.660 (0.47-4.68) mIU/L Radiology Exams: Radiology Procedures Category Date Time Status CHEST 1 VIEW (PORTABLE) Stat Exams 04/03/23 15:19 Completed ECHO W/2D AND DOPPLER [US] Routine Exams 04/04/23 05:15 Taken GALLBLADDER [US] Urgent Exams 04/04/23 05:15 Completed Multi-Disciplinary Progress Notes: Multi-Disciplinary Progress Notes 04/04/23 05:52 Nutrition Note by Tay Chacko [id number] Dr. Pako Henning notified that Pts HR was 120's-130's. New order for Metoprolol 25mg po x1 Initialized on 04/04/23 05:52 - END OF NOTE <DENISE CONNORS - Last Filed: 04/04/23 23:21> Assessment/Plan (1) Acute respiratory failure with hypoxia Current Visit: Yes Status: Acute Assessment & Plan: ARF with hypoxia -Multifocal with COPD/RSV/Pneumonia -Supplemental oxygen with target spo2 > 92% -Solumedrol/DuoNebs/INH/ -IS/Flutter therapy Code(s): J96.01 - ACUTE RESPIRATORY FAILURE WITH HYPOXIA (2) Atrial fibrillation with RVR Current Visit: Yes Status: Acute Assessment & Plan: -On cardizem drip in ED, now HR controlled. -continue home meds Xarelto/Coreg, may need to adjust coreg as appropriate -TSH, MG, BMP -Optimize electrolytes K>4, MG >2 -Continuous Tele -EKG in ED showing AFIB -No recent echo on file, will obtain -Monitor BP closely -cardiology consult -Coreg increased to 12.5mg BID Code(s): I48.91 - UNSPECIFIED ATRIAL FIBRILLATION (3) Cholelithiasis Current Visit: Yes Status: Acute Assessment & Plan: -Recent CT of chest noting incompletely visualized 2.8 cm gallstone, Tbili elevated at 3.20 -RUQ US -Zosyn -Gen Surgery consult (4) Pneumonia Current Visit: Yes Status: Acute Assessment & Plan: -RA at baseline -Sputum culture -Blood cultures pending -Ceftriaxone/azith started in ED will continue with Zosyn for additional coverage of possible cholecystitis -Supplemental oxygen with spo2 target at >92% -Solumedrol/DuoNebs/INH - RT consult -PCT -LA elevated at 2.3,WBC WNL, IVF contraindicated in the setting of CHF Code(s): J18.9 - PNEUMONIA, UNSPECIFIED ORGANISM (5) RSV (acute bronchiolitis due to respiratory syncytial virus) Current Visit: Yes Status: Acute Assessment & Plan: -Supportive care, see ARF (6) COPD exacerbation Current Visit: No Status: Acute Assessment & Plan: -Supplemental O2 for spo2 target >92% -DuoNebs/INH/steroid -RT eval -ceftriaxone/azith -IS/Flutter Code(s): J44.1 - CHRONIC OBSTRUCTIVE PULMONARY DISEASE W (ACUTE) EXACERBATION (7) HTN (hypertension) Current Visit: No Status: Chronic Assessment & Plan: -continue home medications Code(s): I10 - ESSENTIAL (PRIMARY) HYPERTENSION (8) HEATHER (obstructive sleep apnea) Current Visit: Yes Status: Acute Assessment & Plan: - not wearing cpap at home - Cpap ordered IP. Code(s): G47.33 - OBSTRUCTIVE SLEEP APNEA (ADULT) (PEDIATRIC) (9) Obesity, morbid, BMI 50 or higher Current Visit: No Status: Chronic Assessment & Plan: - advised diet control and weight loss Code(s): E66.01 - MORBID (SEVERE) OBESITY DUE TO EXCESS CALORIES (10) Acute on chronic renal failure Current Visit: Yes Status: Acute Assessment & Plan: -Baseline around 1.7 - Follows with Dr. Cisneros- Nephrology - Avoid ULISSES/ARBS/ NSAIDs - diurectics -Monitor renal/lytes daily - Strict I/Os VTE: Xarelto D/C plan: 1-2 days Next of Kin: Nino Ornelasenter (sibling) [phone] Code(s): N17.9 - ACUTE KIDNEY FAILURE, UNSPECIFIED; N18.9 - CHRONIC KIDNEY DISEASE, UNSPECIFIED <ELIANA MCCLELLAND - Last Filed: 04/04/23 09:13> ANGIE Encounter - ANGIE Encounter Attestation ANGIE Encounter Attestation: "IhavepersonallyseenandexaminedCEVERSHRTUI OVALLES andhavediscussed pertinent aspects of their care with Eliana Mcclelland and agree with the history, physical exam (any modifications based on my personal exam will be noted below), assessment, and plan as outlined in original note. Please see immediately below for my summary of findings and additional assessment and plan along with any meaningful corrections/explanations to the Subjective/Objective portions of the ANGIE note will be noted." My portion of the encounter took place via telemedicine. -History of faily well controlled Afib, now in RVR likely due to hypoxia, pneumonia, RSV. Coreg increased for now, if persistent RVR, can switch to metoprolol <DENISE CONNORS - Last Filed: 04/04/23 23:21>
[2023-04-04] MEDS: Lopressor 25MG Tab PO ONE (05:50)
[2023-04-04 06:33] LABS: Absolute Neutrophil Ct (ANC) 2.95 x10^3/uL (1.4-6.9); BASOPHIL % 0.7 % (0.0-0.4); Basophil (Absolute #) 0.03 x10^3/uL (0-0.4); Eosinophil % 1.2 % (0.00-5.0); Eosinophil (Absolute #) 0.05 x10^3/uL (0-0.5); Hematocrit 35.4 % (35-47); Hemoglobin 10.7 g/dL (12.0-16.0); IMMATURE GRAN # 0.02 x10^3u/L (0.00-0.03); IMMATURE GRAN % 0.5 % (0.00-0.4); Lymphocyte (Absolute #) 0.81 x10^3/uL (1.0-4.6); Lymphocytes % 19.4 % (24.0-44.0); Mean Cell Volume 101.1 fL (78-100); Mean Corpuscular Hemoglobin 30.6 pg (26-32); Mean Corpuscular Hgb Concent. 30.2 g/dL (32-36); Mean Platelet Volume 9.9 fL (7.5-11.0); Monocyte (Absolute #) 0.32 x10^3/uL (0.0-1.3); Monocytes % 7.7 % (0.0-12.0); Neutrophil % 70.5 % (36.0-66.0); Platelet Count 206 x10^3/uL (150-450); Red Cell Distribution Width 15.4 % (11.5-14.0); White Blood Count 4.2 x10^3/uL (4.0-10.5)
[2023-04-04] MEDS: PATIENT OWN MEDICATION IH SCH (06:45)
[2023-04-04 07:54] LABS: ALBUMIN 3.5 g/dL (3.5-5.0); BILIRUBIN,TOTAL 2.3 mg/dL (0.2-1.3); Calcium 9.1 mg/dL (8.4-10.2); Creatinine 1 1.16 mg/dL (0.52-1.04); EST GLOMERULAR FILTRATION RATE 54.3 ML/MIN; MAGNESIUM 1.7 mg/dL (1.6-2.3); PROCALCITONIN 0.184 ng/mL (0.030-0.080); Potassium 3.6 mmol/L (3.5-5.1); TSH, 3RD Generation 0.66 mIU/L (0.47-4.68); Total Protein 6.3 g/dL (6.3-8.2)
[2023-04-04] MEDS: Vitamin B-12 500 MCG PO SCH (08:34)
[2023-04-04] MEDS: Lasix 40 MG PO SCH (08:34)
[2023-04-04] MEDS: Ditropan XL 5 MG PO SCH (08:34)
[2023-04-04] MEDS: FEOSOL 325 MG PO SCH (08:34)
[2023-04-04] MEDS: COREG 12.5 MG PO SCH (08:34)
[2023-04-04] MEDS: PHARMACY RENAL DOSING MC ONE (09:05)
[2023-04-04] MEDS: Advair Hfa 115/21 Common canister IH SCH (09:29)
[2023-04-04] MEDS: PIPERACILLIN/TAZOBACTAM 3.375 GM in Sodium Chloride 100ML MINI-BAG PLUS 100 ML IV SCH (09:36)
[2023-04-04] MEDS ORDERED: NON-FORMULARY ITEM (Mecobalamin [B12 Active] 1,000 MCG Tab.Chew) PO SCH (10:00)
[2023-04-04] MEDS ORDERED: NON-FORMULARY ITEM (Oxybutynin Chloride [Oxybutynin Chloride Er] 10 MG Tab.Er.24) PO SCH (10:00)
[2023-04-04] MEDS: NORVASC 5 MG PO SCH (12:47)
--- NOTE | 2023-04-04 13:51 | XRAY ---
Indication: Cholelithiasis. Two-dimensional gallbladder sonogram performed. Comparison: February 26, 2023 Pancreas again obscured. Gallbladder again distended with a few gallstones, largest 2.5 cm. No abnormal gallbladder wall thickening or pericholecystic fluid. Common bile duct measures 4.2 mm. No intrahepatic bili distention. Remaining visualized liver and right kidney are again sonographically unremarkable. Right kidney measures 10.6 IMEs in length. Impression: No change compared to gallbladder sonogram one month ago. Again cholelithiasis without cholecystitis/biliary distention. Nonvisualization pancreas.
[2023-04-04] MEDS: Coreg PO SCH (22:11)
[2023-04-05 05:46] LABS: BASOPHIL % 0.5 % (0.0-0.4); Basophil (Absolute #) 0.02 x10^3/uL (0-0.4); Eosinophil % 2.5 % (0.00-5.0); Hematocrit 33.4 % (35-47); Hemoglobin 10.4 g/dL (12.0-16.0); IMMATURE GRAN # 0.02 x10^3u/L (0.00-0.03); IMMATURE GRAN % 0.5 % (0.00-0.4); Lymphocyte (Absolute #) 1.27 x10^3/uL (1.0-4.6); Lymphocytes % 32.3 % (24.0-44.0); Mean Cell Volume 99.4 fL (78-100); Mean Corpuscular Hgb Concent. 31.1 g/dL (32-36); Mean Platelet Volume 10.2 fL (7.5-11.0); Monocyte (Absolute #) 0.32 x10^3/uL (0.0-1.3); Monocytes % 8.1 % (0.0-12.0); Neutrophil % 56.1 % (36.0-66.0); Platelet Count 214 x10^3/uL (150-450); Red Blood Count 3.36 x10^6/uL (4.1-5.4); Red Cell Distribution Width 15.3 % (11.5-14.0); White Blood Count 3.9 x10^3/uL (4.0-10.5)
[2023-04-05 06:01] LABS: ALBUMIN 3.3 g/dL (3.5-5.0); ANION GAP 10.5 MEQ/L (5-15); BILIRUBIN,TOTAL 1.5 mg/dL (0.2-1.3); Calcium 8.6 mg/dL (8.4-10.2); Creatinine 1 1.42 mg/dL (0.52-1.04); EST GLOMERULAR FILTRATION RATE 42.6 ML/MIN; MAGNESIUM 1.7 mg/dL (1.6-2.3); Potassium 3.2 mmol/L (3.5-5.1); Total Protein 6.1 g/dL (6.3-8.2)
[2023-04-05] MEDS: Klor Con PO SCH (08:23)
--- NOTE | 2023-04-05 09:41 | PCM.DS ---
Discharge Summary Date of Admission: 04/03/23 18:05 Date of Discharge: 04/05/23 Admitting Physician: DENISE CONNORS MD Consults: Consults on Case 04/04/23 08:29 Consult Cardiology ROUTINE Primary Care Provider: DENISE CONNORS MD <ELIANA MCCLELLAND - Last Filed: 04/05/23 10:40> Date of Admission: 04/03/23 18:05 Admitting Physician: DENISE CONNORS MD Consults: Consults on Case 04/04/23 08:29 Consult Cardiology ROUTINE Primary Care Provider: DENISE CONNORS MD <DENISE CONNORS - Last Filed: 04/06/23 00:26> Allergies <ELIANA MCCLELLAND - Last Filed: 04/05/23 10:40> <DENISE CONNORS - Last Filed: 04/06/23 00:26> Allergies No Known Drug Allergies Allergy (Verified 04/03/23 15:03) Hospital Summary - Hospital Course Hospital Course: Ms. Rader is a 57 year old female with a pmhx of COPD (baseline RA -follows with Dr. Kowalski), stroke (residual left sided weakness), CKD stage IIIB (follows with Dr. Cisneros), AFIB (on Xarelto), HLD, HTN, HEATHER, Gout, GERD and recent hospitalization for pneumonia 02/11/23-02/14/23, who presented to ED 04/03/23 under advisement of her PCP with complaints of progressive shortness of breath and productive cough with yellow sputum. Of note patient had CT scan on 03/31/23 showing Diffuse left lung and lesser degree right middle lobe consolidating airspace disease. Small left subpulmonic effusion. Reactive mediastinal lymph nodes. In ED, patient tachycardic, hypertensive, and hypoxic on presentation. EKG A-fib, NORMAL AXIS, Q-wave, Non-specific ST Changes (interpreted by ED physician). CXR showing diffuse left lung consolidating/nonconsolidating airspace disease which is minimally improved from 02/13/23. Lab findings remarkable for macrocytic, hyperchromic anemia with hgb at 11.7, GAP acidosis with GAP at 16.9 and LA at 2.3, BUN/Creat elevated but at 1.41 (baseline around 1.17), total bili at 3.20, and BNP at 5610. RSV positive. Patient received Cardizem, Duoneb, ceftriaxone/azithromycin in ED. Patient admitted with acute respiratory failure secondary to COPD exacerbation/RSV/Pneumonia, AFIB, and Cholelithiasis. Dyspnea and cough have improved. Cardiology consulted with recs to add amlodipine 2.5mg daily and plan for cardioversion/ablation as OP on 04/15/23 with , no changes to coreg/xarelto. US of RUQ with known cholethiasis, no obstructed bile duct, patient has been evaluated as OP for this and surgery currently on hold. Advised patient to follow up with Cardiology, pulm, and PCP as OP, and surgery as directed. Patient agreeable to plan, will discharge with neb/neb machine, cefpodoxime/medrol dose pack. INH sent home. Patient set up with home oxygen. Discharge Note New Diagnosis: RSV/PNA/AFIB New Medications: Amlodipine/cefpodoxime/duonebs/medrol dose pack Follow Up: PCP, Pulm, Cards, Surg Latest Assessment & Plan (1) Acute respiratory failure with hypoxia Current Visit: Yes Status: Acute Assessment & Plan: ARF with hypoxia -Multifocal with COPD/RSV/Pneumonia -Supplemental oxygen with target spo2 > 92% -Solumedrol/DuoNebs/INH/ -IS/Flutter therapy Code(s): J96.01 - ACUTE RESPIRATORY FAILURE WITH HYPOXIA (2) Atrial fibrillation with RVR Current Visit: Yes Status: Acute Assessment & Plan: -On cardizem drip in ED, now HR controlled. -continue home meds Xarelto/Coreg, may need to adjust coreg as appropriate -TSH, MG, BMP -Optimize electrolytes K>4, MG >2 -Continuous Tele -EKG in ED showing AFIB -No recent echo on file, will obtain -Monitor BP closely -cardiology consult -Coreg increased to 12.5mg BID Code(s): I48.91 - UNSPECIFIED ATRIAL FIBRILLATION (3) Cholelithiasis Current Visit: Yes Status: Acute Assessment & Plan: -Recent CT of chest noting incompletely visualized 2.8 cm gallstone, Tbili elevated at 3.20 -RUQ US -Zosyn -Gen Surgery consult (4) Pneumonia Current Visit: Yes Status: Acute Assessment & Plan: -RA at baseline -Sputum culture -Blood cultures pending -Ceftriaxone/azith started in ED will continue with Zosyn for additional coverage of possible cholecystitis -Supplemental oxygen with spo2 target at >92% -Solumedrol/DuoNebs/INH - RT consult -PCT -LA elevated at 2.3,WBC WNL, IVF contraindicated in the setting of CHF Code(s): J18.9 - PNEUMONIA, UNSPECIFIED ORGANISM (5) RSV (acute bronchiolitis due to respiratory syncytial virus) Current Visit: Yes Status: Acute Assessment & Plan: -Supportive care, see ARF (6) COPD exacerbation Current Visit: No Status: Acute Assessment & Plan: -Supplemental O2 for spo2 target >92% -DuoNebs/INH/steroid -RT eval -ceftriaxone/azith -IS/Flutter Code(s): J44.1 - CHRONIC OBSTRUCTIVE PULMONARY DISEASE W (ACUTE) EXACERBATION (7) HTN (hypertension) Current Visit: No Status: Chronic Assessment & Plan: -continue home medications Code(s): I10 - ESSENTIAL (PRIMARY) HYPERTENSION (8) HEATHER (obstructive sleep apnea) Current Visit: Yes Status: Acute Assessment & Plan: - not wearing cpap at home - Cpap ordered IP. Code(s): G47.33 - OBSTRUCTIVE SLEEP APNEA (ADULT) (PEDIATRIC) (9) Obesity, morbid, BMI 50 or higher Current Visit: No Status: Chronic Assessment & Plan: - advised diet control and weight loss Code(s): E66.01 - MORBID (SEVERE) OBESITY DUE TO EXCESS CALORIES (10) Acute on chronic renal failure Current Visit: Yes Status: Acute Assessment & Plan: -Baseline around 1.7 - Follows with Dr. Cisneros- Nephrology - Avoid ULISSES/ARBS/ NSAIDs - diurectics -Monitor renal/lytes daily - Strict I/Os I spent 35 minutes [id number] with the patient on the day of discharge perf orming discharge exam, discussing hospital stay and discharge instructions with patient and caregivers, preparation of discharge records, prescriptions & referral forms and addressing any questions/concerns the patient had as documented above. - Vitals & Intake/Output Vital Signs: Vital Signs Temperature 96.8 F 04/05/23 08:00 Pulse Rate 89 04/05/23 08:00 Respiratory Rate 19 04/05/23 08:00 Blood Pressure 139/98 04/05/23 08:00 O2 Sat by Pulse Oximetry 93 L 04/05/23 08:00 Intake & Output: Intake & Output 04/02/23 04/03/23 04/04/23 04/05/23 11:59 11:59 11:59 11:59 Intake Total 240 900 Balance 240 900 Weight 146.9 kg - Lab Result Diagrams: 04/05/23 05:28 04/05/23 10:01 Lab Results-Last 24 Hrs: Lab Results-Last 24 Hours 04/05/23 04/05/23 Range/Units 05:28 05:28 WBC 3.9 L (4.0-10.5) x10^3/uL RBC 3.36 L (4.1-5.4) x10^6/uL Hgb 10.4 L (12.0-16.0) g/dL Hct 33.4 L (35-47) % MCV 99.4 (78-100) fL MCH 31.0 (26-32) pg MCHC 31.1 L (32-36) g/dL RDW 15.3 H (11.5-14.0) % Plt Count 214 (150-450) x10^3/uL MPV 10.2 (7.5-11.0) fL Gran % 56.1 (36.0-66.0) % Immature Gran % (Auto) 0.5 H (0.00-0.4) % Nucleat RBC Rel Count 0.0 (0.00-0.1) % Eos # (Auto) 0.10 (0-0.5) x10^3/uL Immature Gran # (Auto) 0.02 (0.00-0.03) x10^3u/L Absolute Lymphs (auto) 1.27 (1.0-4.6) x10^3/uL Absolute Monos (auto) 0.32 (0.0-1.3) x10^3/uL Absolute Nucleated RBC 0.00 (0.00-0.01) x10^3u/L Lymphocytes % 32.3 (24.0-44.0) % Monocytes % 8.1 (0.0-12.0) % Eosinophils % 2.5 (0.00-5.0) % Basophils % 0.5 (0.0-0.4) % Absolute Granulocytes 2.20 (1.4-6.9) x10^3/uL Basophils # 0.02 (0-0.4) x10^3/uL Sodium 135 L (137-145) mmol/L Potassium 3.2 L (3.5-5.1) mmol/L Chloride 99 (98-107) mmol/L Carbon Dioxide 29 (22-30) mmol/L Anion Gap 10.5 (5-15) MEQ/L BUN 30 H (7-17) mg/dL Creatinine 1.42 H (0.52-1.04) mg/dL Estimated GFR 42.6 ML/MIN Glucose 97 (74-106) mg/dL Calcium 8.6 (8.4-10.2) mg/dL Magnesium 1.7 (1.6-2.3) mg/dL Total Bilirubin 1.50 H (0.2-1.3) mg/dL AST 16 (14-36) U/L ALT 12 (0-35) U/L Alkaline Phosphatase 75 (38-126) U/L Serum Total Protein 6.1 L (6.3-8.2) g/dL Albumin 3.3 L (3.5-5.0) g/dL - Radiology Exams Ordered Rad Exams-Entire Visit: Radiology Procedures Category Date Time Status CHEST 1 VIEW (PORTABLE) Stat Exams 04/03/23 15:19 Completed ECHO W/2D AND DOPPLER [US] Routine Exams 04/04/23 05:15 Taken GALLBLADDER [US] Urgent Exams 04/04/23 05:15 Completed - Procedures and Test Procedures and Tests throughout Hospitalization: Therapy Orders & Screens 04/03/23 15:43 Respiratory Therapy Assessment DAILY Comment: 04/03/23 18:10 Oxygen Nasal Cannula 2 lpm Comment: 04/03/23 18:13 Respiratory Therapy Assessment DAILY Comment: Diagnosis: Fibrillation with RVR, acute hypoxic respiratory failure, pneumonia, RSV 04/03/23 19:14 BiPap/CPAP ROUTINE Comment: patient has home cpap Diagnosis: A-Fibrillation with RVR, acute hypoxic respiratory failure, pneumonia, RSV 04/04/23 05:15 Incentive Spirometry UD Comment: Diagnosis: A-Fibrillation with RVR, acute hypoxic respiratory failure, pneumonia, RSV 04/04/23 05:34 Respiratory MDI BID Comment: Diagnosis: A-Fibrillation with RVR, acute hypoxic respiratory failure, pneumonia, RSV <KRYSTIN,ELIANA L. - Last Filed: 04/05/23 10:40> - Vitals & Intake/Output Vital Signs: Vital Signs Temperature 97.6 F 04/05/23 12:00 Pulse Rate 101 H 04/05/23 13:15 Respiratory Rate 12 04/05/23 13:15 Blood Pressure 143/84 04/05/23 12:00 O2 Sat by Pulse Oximetry 92 L 04/05/23 13:15 Intake & Output: Intake & Output 04/03/23 04/04/23 04/05/23 04/06/23 11:59 11:59 11:59 11:59 Intake Total 240 900 120 Balance 240 900 120 Weight 146.9 kg - Lab Result Diagrams: 04/05/23 05:28 04/05/23 10:01 Lab Results-Last 24 Hrs: Lab Results-Last 24 Hours 04/05/23 04/05/23 04/05/23 Range/Units 05:28 05:28 10:01 WBC 3.9 L (4.0-10.5) x10^3/uL RBC 3.36 L (4.1-5.4) x10^6/uL Hgb 10.4 L (12.0-16.0) g/dL Hct 33.4 L (35-47) % MCV 99.4 (78-100) fL MCH 31.0 (26-32) pg MCHC 31.1 L (32-36) g/dL RDW 15.3 H (11.5-14.0) % Plt Count 214 (150-450) x10^3/uL MPV 10.2 (7.5-11.0) fL Gran % 56.1 (36.0-66.0) % Immature Gran % (Auto) 0.5 H (0.00-0.4) % Nucleat RBC Rel Count 0.0 (0.00-0.1) % Eos # (Auto) 0.10 (0-0.5) x10^3/uL Immature Gran # (Auto) 0.02 (0.00-0.03) x10^3u/L Absolute Lymphs (auto) 1.27 (1.0-4.6) x10^3/uL Absolute Monos (auto) 0.32 (0.0-1.3) x10^3/uL Absolute Nucleated RBC 0.00 (0.00-0.01) x10^3u/L Lymphocytes % 32.3 (24.0-44.0) % Monocytes % 8.1 (0.0-12.0) % Eosinophils % 2.5 (0.00-5.0) % Basophils % 0.5 (0.0-0.4) % Absolute Granulocytes 2.20 (1.4-6.9) x10^3/uL Basophils # 0.02 (0-0.4) x10^3/uL Sodium 135 L (137-145) mmol/L Potassium 3.2 L 3.6 (3.5-5.1) mmol/L Chloride 99 (98-107) mmol/L Carbon Dioxide 29 (22-30) mmol/L Anion Gap 10.5 (5-15) MEQ/L BUN 30 H (7-17) mg/dL Creatinine 1.42 H (0.52-1.04) mg/dL Estimated GFR 42.6 ML/MIN Glucose 97 (74-106) mg/dL Calcium 8.6 (8.4-10.2) mg/dL Magnesium 1.7 (1.6-2.3) mg/dL Total Bilirubin 1.50 H (0.2-1.3) mg/dL AST 16 (14-36) U/L ALT 12 (0-35) U/L Alkaline Phosphatase 75 (38-126) U/L Serum Total Protein 6.1 L (6.3-8.2) g/dL Albumin 3.3 L (3.5-5.0) g/dL Micro Results-Entire Visit: Microbiology 04/03/23 15:40 Blood Culture - Preliminary Blood 04/03/23 15:34 Blood Culture - Preliminary Blood - Radiology Exams Ordered Rad Exams-Entire Visit: Radiology Procedures Category Date Time Status ECHO W/2D AND DOPPLER [US] Routine Exams 04/04/23 05:15 Taken GALLBLADDER [US] Urgent Exams 04/04/23 05:15 Completed - Procedures and Test Procedures and Tests throughout Hospitalization: Therapy Orders & Screens 04/03/23 15:43 Respiratory Therapy Assessment DAILY Comment: 04/03/23 18:10 Oxygen Nasal Cannula 2 lpm Comment: 04/03/23 18:13 Respiratory Therapy Assessment DAILY Comment: Diagnosis: Fibrillation with RVR, acute hypoxic respiratory failure, pneumonia, RSV 04/03/23 19:14 BiPap/CPAP ROUTINE Comment: patient has home cpap Diagnosis: A-Fibrillation with RVR, acute hypoxic respiratory failure, pneumonia, RSV 04/04/23 05:15 Incentive Spirometry UD Comment: Diagnosis: A-Fibrillation with RVR, acute hypoxic respiratory failure, pneumonia, RSV 04/04/23 05:34 Respiratory MDI BID Comment: Diagnosis: A-Fibrillation with RVR, acute hypoxic respiratory failure, pneumonia, RSV <DENISE CONNORS - Last Filed: 04/06/23 00:26> Discharge Exam General Appearance: no apparent distress Neurologic Exam: alert, oriented x 3, cooperative Eye Exam: PERRL Ears, Nose, Throat Exam: normal ENT inspection Neck Exam: normal inspection Respiratory Exam: crackles/rales Cardiovascular Exam: regular rate/rhythm, normal heart sounds Gastrointestinal/Abdomen Exam: soft, normal bowel sounds Pelvic Exam: deferred Rectal Exam: deferred Back Exam: normal inspection Extremity Exam: normal inspection Skin Exam: normal color <ELIANA MCCLELLAND - Last Filed: 04/05/23 10:40> Final Diagnosis/Problem List - Final Discharge Diagnosis/Problem (1) Acute respiratory failure with hypoxia Status: Acute Code(s): J96.01 - ACUTE RESPIRATORY FAILURE WITH HYPOXIA (2) Atrial fibrillation with RVR Status: Acute Code(s): I48.91 - UNSPECIFIED ATRIAL FIBRILLATION (3) Cholelithiasis Status: Acute (4) Pneumonia Status: Acute Code(s): J18.9 - PNEUMONIA, UNSPECIFIED ORGANISM (5) RSV (acute bronchiolitis due to respiratory syncytial virus) Status: Acute (6) COPD exacerbation Status: Acute Code(s): J44.1 - CHRONIC OBSTRUCTIVE PULMONARY DISEASE W (ACUTE) EXACERBATION (7) HTN (hypertension) Status: Chronic Code(s): I10 - ESSENTIAL (PRIMARY) HYPERTENSION (8) HEATHER (obstructive sleep apnea) Status: Acute Code(s): G47.33 - OBSTRUCTIVE SLEEP APNEA (ADULT) (PEDIATRIC) (9) Obesity, morbid, BMI 50 or higher Status: Chronic Code(s): E66.01 - MORBID (SEVERE) OBESITY DUE TO EXCESS CALORIES (10) Acute on chronic renal failure Status: Acute Code(s): N17.9 - ACUTE KIDNEY FAILURE, UNSPECIFIED; N18.9 - C HRONIC KIDNEY DISEASE, UNSPECIFIED <ELIANA MCCLELLAND - Last Filed: 04/05/23 10:40> <ELIANA MCCLELLAND - Last Filed: 04/05/23 10:40> <DARIENTURNERLUCIUSDENISE - Last Filed: 04/06/23 00:26> - Discharge Disposition: Home, Self-Care Condition: Stable Prescriptions: New Albuterol/Ipratropium 3ml Neb* [DUONEB 0.5-3 MG/3 ml Neb] 3 ml IH Q6HPRN PRN 30 Days #120 amp PRN Reason: Shortness Of Breath/Wheezing Amlodipine Besylate 5 mg [Norvasc 5 mg] 0.5 tab PO QAM 30 Days #15 tablet Potassium Chloride 20 meq PO DAILY 5 Days #5 tablet Methylprednisolone Packet [Medrol Dosepack] 4 mg PO UD #30 packet Cefpodoxime Proxetil 200 mg [Vantin 200 mg] 200 mg PO BID 7 Days #14 tablet Continue Furosemide 40 mg [Lasix 40 MG] 40 mg PO DAILY Allopurinol 300 mg [Zyloprim 300 mg] 300 mg PO QHS Oxybutynin Chloride [Oxybutynin Chloride ER] 10 mg PO DAILY Ferrous Sulfate 325 mg PO DAILY Carvedilol [Coreg ] 6.25 mg PO BID Albuterol Sulfate [Albuterol Sulfate Hfa] 8.5 gm IH Q4-6HPRN PRN 30 Days #1 PRN Reason: Shortness Of Breath/Wheezing Fluticasone/Salmeterol [Advair 100-50 Diskus] 1 each IH BID #1 blist Rivaroxaban 10 mg Tablet [Xarelto 10 mg Tablet] 20 mg PO HS Mecobalamin [B12 Active] 1,000 mcg PO DAILY Instructions: Respiratory Syncytial Virus, Adult (DC), Exacerbation of COPD (DC) Additional Instructions: YOU NEED TO CALL YOUR [employer] [facility] AT , [address], SOON YOU GET HOME SO HE CAN DELIVER YOUR OXYGEN EQUIPMENT AND YOUR NEBULIZER MACHINE. Follow up with: MINERVA KOWALSKI [CONSULTING PHYSICIAN] - 04/18/23 CANDICE BROWN [CONSULTING PHYSICIAN] - 04/15/23 11:45 am MELBA WILHELM MD [ACTIVE STAFF] - 04/10/23 2:45 pm ELLA CISNEROS [CONSULTING PHYSICIAN] - 04/14/23 2:00 pm ANGIE Encounter - ANGIE Encounter Attestation ANGIE Encounter Attestation: "IhavepersonallyseenandexSHRUTI Spear on 04/05/2023 andhavediscussed pertinent aspects of their care with Eliana Walker agree with the history, physical exam (any modifications based on my personal exam will be noted below), assessment, and plan as outlined in original note. Please see immediately below for my summary of findings and additional assessment and plan along with any meaningful corrections/explanations to the Subjective/Objective portions of the ANGIE note will be noted." My portion of the encounter took place via telemedicine. <DENISE CONNORS - Last Filed: 04/06/23 00:26>
[2023-04-05] MEDS: NORVASC 5 MG PO SCH (09:45)
[2023-04-05 12:18] VITALS: BP 143/84; TEMP 97.6
[2023-04-05 13:17] VITALS: PULSE 101; RESP 12; O2SAT 92
== END 2023-04-05 13:42 | disposition home or self-care (01) ==
LOC: ED 15:00 → MED SURG 18:05
PROVIDERS: ADMIT Internal Medicine; ATTEND Internal Medicine
DX: J96.01 Acute respiratory failure with hypoxia (principal); I48.20 Chronic atrial fibrillation, unspecified; J18.9 Pneumonia, unspecified organism; B97.4 Respiratory syncytial virus as the cause of diseases classified elsewhere; I13.0 Hypertensive heart and chronic kidney disease with heart failure and stage 1 through stage 4 chronic kidney disease, or unspecified chronic kidney disease; I50.9 Heart failure, unspecified; N18.30 Chronic kidney disease, stage 3 unspecified; I25.10 Atherosclerotic heart disease of native coronary artery without angina pectoris; I42.9 Cardiomyopathy, unspecified; G47.33 Obstructive sleep apnea (adult) (pediatric); E78.5 Hyperlipidemia, unspecified; J44.1 Chronic obstructive pulmonary disease with (acute) exacerbation; K80.20 Calculus of gallbladder without cholecystitis without obstruction; E66.01 Morbid (severe) obesity due to excess calories; N17.9 Acute kidney failure, unspecified; Z79.01 Long term (current) use of anticoagulants; Z79.899 Other long term (current) drug therapy; Z20.828 Contact with and (suspected) exposure to other viral communicable diseases; Z86.73 Personal history of transient ischemic attack (TIA), and cerebral infarction without residual deficits
CPT/HCPCS: 0241U; 36000; 36415; 71045; 76705; 80053; 83605; 83735; 83880; 84132; 84145; 84443; 84484; 85025; 87040; 93005; 93041; 93268; 93306; 94640; 94660; 94762; 96365; 96367; 96374; 99285; G0378; Q3014; J0456; J0696; A9270-GY